=== PATIENT | male | born 1970 | race Caucasian/White ===

== ENCOUNTER → 2016-12-07 | Outpatient (CLI) | payer BC ==
[2016-12-07 13:53] LABS: CH 33.3; CHCM 34.2; HCT 57.8 % (39.0-53.0); HDW 2.59; MCH 32.2 pg (25.0-35.0); MCHC 32.9 g/dL (31.0-37.0); MCV 97.9 fL (80.0-100.0); Mean Platelet Volume 6.4; RDW 13.1 % (11.5-15.5); WBC 8.3 k/uL (3.8-10.6)
[2016-12-07 14:26] LABS: ALT 58 U/L (21-72); AST 32 U/L (17-59); Alkaline Phosphatase 70 U/L (38-126); Anion Gap 10 mmol/L; Blood Urea Nitrogen 15 mg/dL (9-20); Calcium 9.5 mg/dL (8.4-10.2); Carbon Dioxide 27 mmol/L (22-30); Chloride 105 mmol/L (98-107); Cholesterol 219 mg/dL (<200); Glucose 106 mg/dL (74-99); HDL Cholesterol 53 mg/dL (40-60); Non-African American GFR(MDRD) >60 (>60 ml/min/1.73 sqM); Potassium 4.4 mmol/L (3.5-5.1); Sodium 142 mmol/L (137-145); Total Bilirubin 0.7 mg/dL (0.2-1.3); Total Protein 7.5 g/dL (6.3-8.2); Triglycerides 209 mg/dL (<150)
== END ==
LOC: LABWHC1 12:44
PROVIDERS: ATTEND Nurse Practitioner Primary Care
DX: Z00.01 Encounter for general adult medical examination with abnormal findings (principal)
CPT/HCPCS: 36415; 80053; 80061; 82306; 84443; 85027

== ENCOUNTER → 2017-12-18 | Outpatient (CLI) | payer BC ==
[2017-12-18 08:05] LABS: ALT 44 U/L (21-72); AST 35 U/L (17-59); Albumin 4.1 g/dL (3.5-5.0); Alkaline Phosphatase 69 U/L (38-126); Anion Gap 12 mmol/L; Blood Urea Nitrogen 21 mg/dL (9-20); Calcium 9.1 mg/dL (8.4-10.2); Carbon Dioxide 28 mmol/L (22-30); Chloride 100 mmol/L (98-107); Glucose 149 mg/dL (74-99); Sodium 140 mmol/L (137-145); Total Bilirubin 0.6 mg/dL (0.2-1.3); Total Protein 7.5 g/dL (6.3-8.2)
[2017-12-18 08:12] LABS: Potassium 3.9 mmol/L (3.5-5.1)
--- NOTE | 2017-12-18 09:29 | MR ---
EXAMINATION TYPE: MR angio head wo con DATE OF EXAM: 12/18/2017 COMPARISON: NONE HISTORY: Dizziness and giddiness and/or vertigo per order. Headaches with nausea and vertigo per galina ent. TECHNIQUE: Time of flight images focusing on the [place] were performed without contrast.. 2-D and 3-D postprocessing imaging is performed on MRI scanner. FINDINGS: There is suspected dominant left vertebral artery or incomplete imaging of vertebral basila r junction due to low positioning. Visualized basilar artery shows satisfactory bifurcation into post erior cerebral arteries. There is patent right posterior communicating artery seen. There is hypoplas tic left posterior communicating artery. No significant stenosis or aneurysmal change is seen. Images of the anterior circulation show patent anterior communicating artery. No significant focal st enosis or aneurysmal change is seen. IMPRESSION: No aneurysmal change identified at the level of the [place]
--- NOTE | 2017-12-18 11:21 | MR ---
EXAMINATION TYPE: MR brain wo/w con DATE OF EXAM: 12/18/2017 COMPARISON: Same day MRA study that is isointense to adjacent draining venous sinuses HISTORY: Dizziness and giddiness and/or vertigo per order. Additional symptoms of headache and nausea per patient. TECHNIQUE: Multiplanar, multisequence images of the brain and brainstem is performed without and with IV contras t, utilizing 10 mL intravenous Gadavist . FINDINGS: Diffusion weighted images demonstrate no evidence of a recent infarct or other diffusion ab normality. There is no worrisome. The ventricular system and cisternal spaces are normal in size an d appearance. The brain volume is age appropriate. Midline structures demonstrate normal morphology. The craniocervical junction appears within normal limits. Post contrast images demonstrate focal area of abnormal nodular enhancement involving the la teral inferior aspect of the left cerebellar hemisphere that correspond to areas of subtle T2 hyperin tensity. Remainder brain parenchyma shows no suspicious enhancement. The dural venous sinuses appear patent. There is mild to moderate lobulated mucosal thickening in the left maxillary sinus. There is mild to moderate mucosal thickening in bilateral ethmoid sinuses. The globes are intact bilaterally. IMPRESSION: 1. Abnormal focal area of nodular enhancement inferior lateral left cerebellar hemisphere, etiology u ncertain. Favor congenital vascular etiology such as cavernous venous malformation as most likely uma ology. Consider CT correlation to assess for calcification and/or MRI with SWI imaging to assess for blooming to confirm.
== END ==
LOC: RADMRIMAIN 07:29
PROVIDERS: ATTEND Family Medicine
DX: R42 Dizziness and giddiness (principal); I10 Essential (primary) hypertension
CPT/HCPCS: 80053; 70544; 70553; 36415; A9581

== ENCOUNTER → 2018-01-02 | Outpatient (CLI) | payer BC ==
--- NOTE | 2018-01-02 09:18 | CT ---
EXAMINATION TYPE: CT brain wo/w con DATE OF EXAM: 01/02/2018 COMPARISON: MRI dated 12/18/2017 HISTORY: Dizziness, Headache and episodes of abnormal gait CT DLP: 2197.6 mGycm Automated Exposure Control for Dose Reduction was Utilized. TECHNIQUE: CT scan of the head is performed with IV contrast.,CT scan of the head is performed withou t and with with IV Contrast, patient injected with 100 mL of Isovue 300. FINDINGS: There is a focal area of hypoattenuation within the left cerebellar hemisphere correspond ing to the area of abnormal enhancement on the prior MRI dated 12/18/2017. No calcifications are seen within this region. On arterial phase postcontrast imaging there is no significant enhancement identi fied. This is in contrast to the likely venous enhancement on the exam of 12/18/2017. Additionally the re are no flow voids within the area on the prior MRI of 12/18/2017 also suggesting slow flow and veno us origin rather than arterial. Overall there are no areas of abnormal intracranial enhancement. Nonc ontrast images show no acute intracranial hemorrhage or midline shift. The ventricles and sulci are w ithin normal limits in size. No suspicious extra-axial fluid collection is seen. The globes are intac t. Moderate mucosal thickening is present throughout the ethmoid sinuses. IMPRESSION: 1. Redemonstration of a left cerebellar hemisphere lesion that in combination with the prior MRI find ings and CT finding suggests venous malformation. No calcifications are seen, however calcifications are present and only 30% of these lesions. 2. Moderate ethmoid paranasal sinus mucosal thickening.
== END | disposition home or self-care (01) ==
LOC: RADCTMAIN 08:13
PROVIDERS: ATTEND Nurse Practitioner Acute Care
DX: G93.89 Other specified disorders of brain (principal)
CPT/HCPCS: 70470; Q9967

== ENCOUNTER 2018-02-16 12:19 | Emergency (ER) | payer BC ==
[2018-02-16 12:49] VITALS: PULSE 67; RESP 18; TEMP 97.6
[2018-02-16] MEDS ORDERED: LOSARTAN 50 MG TAB PO STA (12:50)
[2018-02-16] MEDS ORDERED: BENZOCAINE SPRAY 1 CAN MUCOUS MEM STA (12:51)
[2018-02-16] MEDS ORDERED: IBUPROFEN 800 MG TAB PO STA (13:18)
[2018-02-16 14:14] VITALS: BP 177/90
--- NOTE | 2018-02-16 14:50 | ED ---
General Adult HPI - General Chief complaint: Dental/Oral Stated complaint: DENTAL PAIN Time Seen by Provider: 02/16/18 13:18 Source: patient Mode of arrival: ambulatory Limitations: no limitations - History of Present Illness Initial comments: 47-year-old male presents to the emergency department for a chief complaint of tooth pain. Patient states it has been somewhat painful for the past 2 weeks but started to increase last night. Patient states he just moved here so does not currently have a dentist. Patient states the pain is in the right upper jaw. Patient denies any radiation to the ear. Patient denies any neck pain or stiffness. Patient denies any fevers or chills at home. Patient states he has been trying to take Tylenol which has helped somewhat. Patient states the tooth broke about 4 months ago and this is where he thinks he has an infection.Patient has no other complaints at this time including shortness of breath, chest pain, abdominal pain, nausea or vomiting, headache, or visual changes. - Related Data Home Medications Medication Instructions Recorded Confirmed ALPRAZolam [Xanax] 0.5 mg PO BID PRN 10/02/15 02/16/18 Losartan Potassium 100 mg PO DAILY 10/02/15 02/16/18 Previous Rx's Medication Instructions Recorded Ibuprofen [Motrin] 600 mg PO Q6H PRN #20 tab 02/16/18 Penicillin V Potassium [Pen Vee K] 500 mg PO Q6H 10 Days tablet 02/16/18 Allergies Allergy/AdvReac Type Severity Reaction Status Date / Time No Known Allergies Allergy Verified 02/16/18 12:49 Review of Systems ROS Statement: Those systems with pertinent positive or pertinent negative responses have been documented in the HPI. ROS Other: All systems not noted in ROS Statement are negative. Past Medical History Past Medical History: Hypertension History of Any Multi-Drug Resistant Organisms: None Reported Additional Past Surgical History / Comment(s): lipoma removed posterior scalp Past Anesthesia/Blood Transfusion Reactions: No Reported Reaction Past Psychological History: Anxiety Smoking Status: Current every day smoker Past Alcohol Use History: Heavy Past Drug Use History: None Reported General Exam Limitations: no limitations General appearance: alert, in no apparent distress Head exam: Present: atraumatic Eye exam: Present: normal appearance. Absent: scleral icterus, conjunctival injection ENT exam: Present: mucous membranes moist, TM's normal bilaterally. Absent: normal exam, normal oropharynx (Patient has a fractured tooth 2. No evidence of abscess along the gumline. Patient does have poor dentition and dental caries.) Neck exam: Present: normal inspection, full ROM. Absent: tenderness, meningismus, lymphadenopathy Respiratory exam: Present: normal lung sounds bilaterally. Absent: respiratory distress, wheezes, rales, rhonchi, stridor Cardiovascular Exam: Present: regular rate, normal rhythm, normal heart sounds. Absent: systolic murmur, diastolic murmur, rubs, gallop, clicks Neurological exam: Present: alert, oriented X3, CN II-XII intact Psychiatric exam: Present: normal affect, normal mood Course Vital Signs 02/16/18 02/16/18 02/16/18 12:46 13:49 14:14 Temperature 97.6 F Pulse Rate 67 Respiratory 18 Rate Blood Pressure 201/115 200/108 177/90 O2 Sat by Pulse 96 Oximetry Medical Decision Making - Medical Decision Making 47-year-old male presents to the emergency department for a chief complaint of right upper tooth pain 2 weeks worsened in the past day. No fevers or chills at home. No neck stiffness or swelling. On exam patient does have a fractured tooth #2. No evidence of abscess along the gumline. No evidence of abscess with palpation along the gumline. Patient will be given penicillin. He was given a starter pack here and will be referred to a dentist. Patient's blood pressure was initially 201/115 in the emergency department. However patient did not take his medications today and is in pain. Patient was given his medications and blood pressure decreased to 177/90. Patient denies any symptoms of high blood pressure such as headache, shortness of breath, chest pain. Patient will continue to take his blood pressure medications at home and follow up with primary care for hypertension. Disposition Clinical Impression: Pain, dental Disposition: HOME SELF-CARE Condition: Good Instructions: Toothache (ED) Additional Instructions: Please take antibiotics as directed. Please take Motrin for pain. Please follow-up with dentist in 1-2 days. Please follow-up with dentist in 1-2 days for high blood pressure. Return to the emergency department if you have any worsening symptoms or fevers. [facility] dental plan [email or web address] marisabel Javed [phone] Prescriptions: Ibuprofen [Motrin] 600 mg PO Q6H PRN #20 tab PRN Reason: Pain Penicillin V Potassium [Pen Vee K] 500 mg PO Q6H 10 Days tablet Is patient prescribed a controlled substance at d/c from ED?: No Referrals: Sofia Norris MD [Primary Care Provider] - 1-2 days Time of Disposition: 14:48
[2018-02-16] MEDS ORDERED: PENICILLIN VK 500MG STARTER 4 TAB BTL PO STA (14:54)
== END 2018-02-16 15:03 | disposition home or self-care (01) ==
LOC: EC 12:19
DX: S02.5XXA Fracture of tooth (traumatic), initial encounter for closed fracture (principal); I10 Essential (primary) hypertension; F17.200 Nicotine dependence, unspecified, uncomplicated; Z86.018 Personal history of other benign neoplasm; Z79.899 Other long term (current) drug therapy; X58.XXXA Exposure to other specified factors, initial encounter
CPT/HCPCS: 99282

== ENCOUNTER 2023-06-21 13:56 | Emergency (ER) | payer SELFPAY ==
--- NOTE | 2023-06-21 14:25 | ED ---
General Adult HPI - General Source: patient, RN notes reviewed, old records reviewed Mode of arrival: ambulatory Limitations: no limitations <Will Kwong - Last Filed: 06/21/23 14:24> <Sarah Suarez - Last Filed: 06/22/23 18:27> - General Stated complaint: covid + high bp Time Seen by Provider: 06/21/23 14:24 - History of Present Illness Initial comments: 53-year-old male presents emergency Department from urgent care for evaluation o f hypertension. Patient states his blood pressure was 190/112. Patient states that his blood pressure is usually high he takes 2 medications for this. He states that he tested positive for COVID-19 urgent care. Patient did take his blood pressure medicine today. (Will Kwong) 53-year-old male with past medical history of hypertension who presents to the emergency department reporting a headache and high blood pressure. He states he has been sick since Saturday. He did test positive for Covid at the clinic today. They noted there that the patient's blood pressure was incredibly high. He states that he does have a history of high blood pressure and it does not even seem to be controlled on his pressure medications. Patient was not worried about his high blood pressure however he was instructed by the urgent care to be seen in the hospital. He states that he has had a headache, sinus congestion, sore throat. Denies taking any medications for his symptoms. Fevers have past. He denies any chest pain or shortness of breath. No other alleviating, preci pitator modifying factors (Sarah Suarez) - Related Data Home Medications Medication Instructions Recorded Confirmed Losartan Potassium 100 mg PO DAILY 10/02/15 06/21/23 Venlafaxine HCl [Effexor] 100 mg PO DAILY 06/21/23 06/21/23 hydroCHLOROthiazide 12.5 mg PO DAILY 06/21/23 06/21/23 Previous Rx's Medication Instructions Recorded amLODIPine [Norvasc] 5 mg PO DAILY #30 tab 06/21/23 Allergies Allergy/AdvReac Type Severity Reaction Status Date / Time No Known Allergies Allergy Verified 06/21/23 16:18 Review of Systems ROS Other: All systems not noted in ROS Statement are negative. <Will Kwong - Last Filed: 06/21/23 14:24> ROS Other: All systems not noted in ROS Statement are negative. <Sarah Suarez - Last Filed: 06/22/23 18:27> ROS Statement: Those systems with pertinent positive or pertinent negative responses have been documented in the HPI. Past Medical History Past Medical History: Hypertension History of Any Multi-Drug Resistant Organisms: None Reported Additional Past Surgical History / Comment(s): lipoma removed posterior scalp Past Anesthesia/Blood Transfusion Reactions: No Reported Reaction Past Psychological History: Anxiety Past Alcohol Use History: Heavy Past Drug Use History: None Reported <Will Kwong - Last Filed: 06/21/23 14:24> General Exam <Will Kwong - Last Filed: 06/21/23 14:24> General appearance: alert, in no apparent distress Head exam: Present: atraumatic, normocephalic, normal inspection Eye exam: Present: normal appearance, PERRL, EOMI. Absent: scleral icterus, co njunctival injection, periorbital swelling ENT exam: Present: normal exam, mucous membranes moist Neck exam: Present: normal inspection. Absent: tenderness, meningismus, lymphadenopathy Respiratory exam: Present: normal lung sounds bilaterally. Absent: respiratory distress, wheezes, rales, rhonchi, stridor Cardiovascular Exam: Present: regular rate, normal rhythm, normal heart sounds. Absent: systolic murmur, diastolic murmur, rubs, gallop, clicks GI/Abdominal exam: Present: soft, normal bowel sounds. Absent: distended, tenderness, guarding, rebound, rigid Extremities exam: Present: normal inspection, full ROM, normal capillary refill. Absent: tenderness, pedal edema, joint swelling, calf tenderness Back exam: Present: normal inspection Neurological exam: Present: alert, oriented X3, CN II-XII intact Psychiatric exam: Present: normal affect, normal mood Skin exam: Present: warm, dry, intact, normal color. Absent: rash <Sarah Suarez - Last Filed: 06/22/23 18:27> - General Exam Comments Initial Comments: Visual Physical Exam Vital signs reviewed General: Well-appearing, nontoxic, no acute distress. Head: Normocephalic, atraumatic Eyes: PERRLA, EOMI ENT: Airway patent Chest: Nonlabored breathing Skin: No visual rash, normal skin tone Neuro: Alert and oriented 3 Musculoskeletal: No gross abnormalities (Will Kwong) Course Vital Signs 06/21/23 06/21/23 06/21/23 14:26 14:50 15:30 Temperature 98.7 F Pulse Rate 91 85 78 Respiratory 20 20 20 Rate Blood Pressure 242/125 199/102 179/106 O2 Sat by Pulse 98 97 Oximetry 06/21/23 06/21/23 15:40 16:30 Temperature 98.1 F Pulse Rate 74 84 Respiratory 17 18 Rate Blood Pressure 171/110 158/95 O2 Sat by Pulse 96 98 Oximetry Medical Decision Making <Will Kwong - Last Filed: 06/21/23 14:24> - Lab Data Result diagrams: 06/21/23 14:37 06/21/23 14:37 <Sarah Suarez - Last Filed: 06/22/23 18:27> - Medical Decision Making I completed the quick note portion of this chart signed Will Kwong PA-C (Will Kwong) Was pt. sent in by a medical professional or institution (SHAD Castanon, EXPERIMENTAL PLASTICS FABRICATOR, urgent care, hospital, or correction...) When possible be specific @ -Urgent care Did you speak to anyone other than the patient for history (EMS, parent, family, police, friend...)? What history was obtained from this source @ -No Did you review nursing and triage notes (agree or disagree)? Why? @ -I reviewed and agree with nursing and triage notes Were old charts reviewed (outside hosp., previous admission, EMS record, old EKG, old radiological studies, urgent care reports/EKG's, correction records)? Report findings @ -No old charts were reviewed Differential Diagnosis (chest pain, altered mental status, abdominal pain women, abdominal pain men, vaginal bleeding, weakness, fever, dyspnea, syncope, headache, dizziness, GI bleed, back pain, seizure, CVA, palpatations, mental health, musculoskeletal)? @ -Covid, influenza, hypertensive urgency, subarachnoid EKG interpreted by me (3pts min.). @ -Yes and demonstrates sinus rhythm with frequent PVCs. Rate of 83. DE interval 182. QRS 91. QTC of 436. No acute ST segment elevations or depressions X-rays interpreted by me (1pt min.). @ -Yes and demonstrates no acute intrathoracic process CT interpreted by me (1pt min.). @ -None done U/S interpreted by me (1pt. min.). @ -None done What testing was considered but not performed or refused? (CT, X-rays, U/S, labs)? Why? @ -None What meds were considered but not given or refused? Why? @ -None Did you discuss the management of the patient with other professionals (professionals i.e. DrNoemi, PA, EXPERIMENTAL PLASTICS FABRICATOR, lab, RT, psych nurse, neonatal social worker, fighter pilot, teacher, inspectors and regulatory officers, case operator)? Give summary @ -No Was smoking cessation discussed for >3mins.? @ -No Was critical care preformed (if so, how long)? @ -No Were there social determinants of health that impacted care today? How? (Homelessness, low income, unemployed, alcoholism, drug addiction, transportation, low edu. Level, literacy, decrease access to med. care, halfway, rehab)? @ -No Was there de-escalation of care discussed even if they declined (Discuss DNR or withdrawal of care, Hospice)? DNR status @ -No What co-morbidities impacted this encounter? (DM, HTN, Smoking, COPD, CAD, Cancer, CVA, ARF, Chemo, Hep., AIDS, mental health diagnosis, sleep apnea, morbid obesity)? @ -Hypertension Was patient admitted / discharged? Hospital course, mention meds given and route, prescriptions, significant lab abnormalities, going to OR and other pertinent info. @ -Upon arrival patient was placed into trauma 1. Thorough history and physical exam was performed. IV access was established and laboratory studies were conducted. Chest x-ray was performed. I did give the patient some hyd ralazine for his high blood pressure. I did discuss the diagnosis, differential and treatment options. Patient states that he has uncontrolled high blood pressure all the time and therefore he is not concerned about it. I did discuss the long-term effects of uncontrolled high blood pressure and states that we should attempt to control it. I will place the patient on amlodipine. Instructed to continue taking his other blood pressure medications. By a blood pressure cuff. Keep a log. Follow up with his primary care doctor for further medication changes. Return for any new or worsening symptoms. Patient given the plan and was discharged in stable condition Undiagnosed new problem with uncertain prognosis? @ -No Drug Therapy requiring intensive monitoring for toxicity (Heparin, Nitro, Insulin, Cardizem)? @ -No Were any procedures done? @ -No Diagnosis/symptom? @ -Acute Covid infection, acute cephalgia, accelerated hypertension Acute, or Chronic, or Acute on Chronic? @ -Hypertension is acute on chronic Uncomplicated (without systemic symptoms) or Complicated (systemic symptoms)? @ -Complicated Side effects of treatment? @ -No Exacerbation, Progression, or Severe Exacerbation? @ -No Poses a threat to life or bodily function? How? (Chest pain, [place], [place], pneumonia, PE, COPD, DKA, ARF, appy, cholecystitis, CVA, Diverticulitis, Homicidal, Suicidal, threat to staff... and all critical care pts) @ -No (Sarah Suarez) - Lab Data Lab Results 06/21/23 06/21/23 06/21/23 Range/Units 14:37 14:37 14:37 WBC 6.5 (3.8-10.6) k/uL RBC 5.91 H (4.30-5.90) m/uL Hgb 18.6 H (13.0-17.5) gm/dL Hct 54.9 H (39.0-53.0) % MCV 93.0 (80.0-100.0) fL MCH 31.4 (25.0-35.0) pg MCHC 33.8 (31.0-37.0) g/dL RDW 12.8 (11.5-15.5) % Plt Count 254 (150-450) k/uL MPV 7.2 Neutrophils % 60 % Lymphocytes % 26 % Monocytes % 7 % Eosinophils % 4 % Basophils % 1 % Neutrophils # 3.9 (1.3-7.7) k/uL Lymphocytes # 1.7 (1.0-4.8) k/uL Monocytes # 0.4 (0-1.0) k/uL Eosinophils # 0.2 (0-0.7) k/uL Basophils # 0.1 (0-0.2) k/uL Sodium 138 (137-145) mmol/L Potassium 4.4 (3.5-5.1) mmol/L Chloride 105 (98-107) mmol/L Carbon Dioxide 23 (22-30) mmol/L Anion Gap 10 mmol/L BUN 14 (9-20) mg/dL Creatinine 1.05 (0.66-1.25) mg/dL Est GFR (CKD-EPI)AfAm >90 (>60 ml/min/1.73 sqM) Est GFR (CKD-EPI)NonAf 81 (>60 ml/min/1.73 sqM) Glucose 100 H (74-99) mg/dL Calcium 8.9 (8.4-10.2) mg/dL Total Bilirubin 0.6 (0.2-1.3) mg/dL AST 29 (17-59) U/L ALT 29 (4-49) U/L Alkaline Phosphatase 67 (38-126) U/L Troponin I <0.012 (0.000-0.034) ng/mL Total Protein 7.8 (6.3-8.2) g/dL Albumin 4.2 (3.5-5.0) g/dL Disposition <Will Kwong - Last Filed: 06/21/23 14:24> Is patient prescribed a controlled substance at d/c from ED?: No Time of Disposition: 16:54 <Sarah Suarez - Last Filed: 06/22/23 18:27> Clinical Impression: Hypertension, COVID-19 Disposition: HOME SELF-CARE Condition: Stable Instructions (If sedation given, give patient instructions): Hypertension (ED) Additional Instructions: Please start taking this medication in addition to your previous blood pressure medications. Check your blood pressure twice daily and keep a log. Follow up with your doctor for further medication adjustments Prescriptions: amLODIPine [Norvasc] 5 mg PO DAILY #30 tab Referrals: None,Stated [Primary Care Provider] - 1-2 days
[2023-06-21 14:47] LABS: Basophils # (A) 0.1 k/uL (0-0.2); Basophils % (A) 1 %; Eosinophils # (A) 0.2 k/uL (0-0.7); Eosinophils % (A) 4 %; HCT 54.9 % (39.0-53.0); HGB 18.6 gm/dL (13.0-17.5); Lymphocytes # (A) 1.7 k/uL (1.0-4.8); Lymphocytes % (A) 26 %; MCH 31.4 pg (25.0-35.0); MCHC 33.8 g/dL (31.0-37.0); Mean Platelet Volume 7.2; Monocytes # (A) 0.4 k/uL (0-1.0); Monocytes % (A) 7 %; Neutrophils # (A) 3.9 k/uL (1.3-7.7); Neutrophils % (A) 60 %; Platelet Count 254 k/uL (150-450); RBC 5.91 m/uL (4.30-5.90); RDW 12.8 % (11.5-15.5); WBC 6.5 k/uL (3.8-10.6)
[2023-06-21 15:00] LABS: ALT 29 U/L (4-49); AST 29 U/L (17-59); African American GFR (CKD) >90 (>60 ml/min/1.73 sqM); Albumin 4.2 g/dL (3.5-5.0); Alkaline Phosphatase 67 U/L (38-126); Anion Gap 10 mmol/L; Blood Urea Nitrogen 14 mg/dL (9-20); Calcium 8.9 mg/dL (8.4-10.2); Carbon Dioxide 23 mmol/L (22-30); Chloride 105 mmol/L (98-107); Glucose 100 mg/dL (74-99); Non-African American GFR(CKD) 81 (>60 ml/min/1.73 sqM); Potassium 4.4 mmol/L (3.5-5.1); Sodium 138 mmol/L (137-145); Total Bilirubin 0.6 mg/dL (0.2-1.3); Total Protein 7.8 g/dL (6.3-8.2)
[2023-06-21] MEDS ORDERED: hydrALAZINE HCL 20 MG/ML 1 ML VIAL IVP STA (15:15)
--- NOTE | 2023-06-21 15:47 | XR ---
EXAMINATION TYPE: XR chest 2V DATE OF EXAM: 06/21/2023 COMPARISON: 10/02/2015. HISTORY: Chest pain. Covid Positive. TECHNIQUE: Frontal and lateral views of the chest are obtained. FINDINGS: There is no focal air space opacity, pleural effusion, or pneumothorax seen. The cardiac silhouette size is within normal limits. The osseous structures are intact. IMPRESSION: No acute cardiopulmonary process.
[2023-06-21 16:38] VITALS: BP 158/95; PULSE 84; RESP 18; TEMP 98.1
== END 2023-06-21 17:01 | disposition home or self-care (01) ==
LOC: EC 13:56
DX: U07.1 COVID-19 (principal); I10 Essential (primary) hypertension; F41.9 Anxiety disorder, unspecified; Z79.899 Other long term (current) drug therapy
CPT/HCPCS: 36415; 93005; 80053; 84484; 85025; 71046; 99284; 96374; J0360

== ENCOUNTER 2023-10-17 13:27 | Inpatient (IN) | payer OTHER ==
[2023-10-17 13:50] LABS: Basophils # (A) 0.1 k/uL (0-0.2); Basophils % (A) 1 %; Eosinophils # (A) 0.3 k/uL (0-0.7); Eosinophils % (A) 3 %; HCT 54.4 % (39.0-53.0); Lymphocytes # (A) 2.3 k/uL (1.0-4.8); Lymphocytes % (A) 24 %; MCH 30.8 pg (25.0-35.0); MCV 93.4 fL (80.0-100.0); Mean Platelet Volume 7.4; Monocytes # (A) 0.7 k/uL (0-1.0); Monocytes % (A) 7 %; Neutrophils # (A) 6.1 k/uL (1.3-7.7); Neutrophils % (A) 63 %; Platelet Count 346 k/uL (150-450); RBC 5.82 m/uL (4.30-5.90); RDW 13.1 % (11.5-15.5); WBC 9.7 k/uL (3.8-10.6)
[2023-10-17] MEDS: HEPARIN SODIUM 1,000 UN/ML (10ML VL) IV ONE (13:50)
[2023-10-17] MEDS ORDERED: HEPARIN SODIUM 1,000 UN/ML (10ML VL) ONE (13:51)
[2023-10-17] MEDS ORDERED: fentaNYL (PF) 50 MCG/ML 2 ML AMP ONE (13:51)
[2023-10-17] MEDS ORDERED: VERAPAMIL 2.5 MG/ML 2 ML AMP ONE (13:52)
[2023-10-17] MEDS: SODIUM CHLORIDE 0.9% 1,000 ML IV STA (13:52)
[2023-10-17] MEDS ORDERED: LIDOCAINE 1% INJ 10MG/ML (20 ML MDV) ONE (13:52)
[2023-10-17] MEDS: ATORVASTATIN 80 MG TAB PO STA (13:56)
--- NOTE | 2023-10-17 14:02 | XR ---
EXAMINATION TYPE: XR chest 1V portable DATE OF EXAM: 10/17/2023 Comparison: 06/21/2023 Clinical History: 53-year-old male with chest pain Findings: Heart mildly enlarged. Mild interstitial density has slightly increased. No flaquito consolidation or pl eural effusion. Impression: Mild cardiomegaly and possible mild pulmonary vascular congestion. No pulmonary edema or focal infilt rate.
--- NOTE | 2023-10-17 14:09 | ED ---
General Adult HPI - General Chief complaint: Chest Pain Stated complaint: Chest pain Time Seen by Provider: 10/17/23 13:40 Source: patient, RN notes reviewed, old records reviewed Mode of arrival: EMS Limitations: no limitations - History of Present Illness Initial comments: Patient is a 53-year-old male with past medical history remarkable for tobacco use, marijuana use, heavy alcohol use, hypertension who presents emergency department sudden onset chest pain. States approximately 2 hours ago he was sitting outside eating, when he began feeling nauseous and began experiencing substernal chest pain. Was sweating profusely as well. No acute shortness of breath only secondary to the pain. States pain does not radiate but is located substernally. No back pain. No current nausea. No abdominal pain. No headaches. No recent falls or trauma. Is not on blood thinners. States he is compliant with his antihypertensive medications and states he is on losartan and hydrochlorothiazide. Was given aspirin by EMS. Unknown if EKG was obtained by EMS. Patient was initially taken to triage where EKG was performed and I was made aware the patient at approximately 1340 which is when STEMI pager was activated. - Related Data Home Medications Medication Instructions Recorded Confirmed Losartan Potassium 100 mg PO DAILY 10/02/15 10/17/23 Venlafaxine HCl [Effexor] 100 mg PO DAILY 06/21/23 10/17/23 hydroCHLOROthiazide 12.5 mg PO DAILY 06/21/23 10/17/23 Allergies Allergy/AdvReac Type Severity Reaction Status Date / Time No Known Allergies Allergy Verified 10/17/23 13:50 Review of Systems ROS Statement: Those systems with pertinent positive or pertinent negative responses have been documented in the HPI. Review of Systems: CONST: Denies fever EYES: Denies blurry vision ENT: Denies nasal congestion C/V: Endorses chest pain RESP: Denies shortness of breath GI: Denies abdominal pain : Denies dysuria SKIN: Denies rash. MSK: Denies joint pain. NEURO: Denies headache ROS Other: All systems not noted in ROS Statement are negative. Past Medical History Past Medical History: Hypertension History of Any Multi-Drug Resistant Organisms: None Reported Additional Past Surgical History / Comment(s): lipoma removed posterior scalp Past Anesthesia/Blood Transfusion Reactions: No Reported Reaction Past Psychological History: Anxiety Past Alcohol Use History: Heavy Past Drug Use History: None Reported General Exam - General Exam Comments Initial Comments: General: Appears in severe distress secondary to substernal chest pain. HEAD: Normal with no signs of head trauma. EYES: PERRLA, EOMI, conjunctiva normal, no discharge. Pulls 3 mm and equal bilaterally. ENT: Hearing grossly intact, normal oropharynx. RESPIRATORY: Clear breath sounds bilaterally. No wheezes, rales, or rhonchi. C/V: Regular rate and rhythm. S1 and S2 auscultated, no edema, peripheral pulses 2+ and intact throughout, symmetrical. ABD: Abd is soft, nontender, nondistended EXT: Normal range of motion, no obvious deformity SKIN: No rashes or lesions observed on exposed skin. NEURO: Alert and oriented x 4. No focal deficits. Limitations: no limitations Course Vital Signs 10/17/23 10/17/23 13:29 13:50 Temperature 97.3 F L Pulse Rate 74 82 Respiratory 20 18 Rate Blood Pressure 94/61 135/75 O2 Sat by Pulse 97 98 Oximetry Medical Decision Making - Medical Decision Making Was pt. sent in by a medical professional or institution (, PA, CUSTOMER PRICING MANAGER, urgent care, hospital, or prison...) When possible be specific @ -No Did you speak to anyone other than the patient for history (EMS, parent, family, police, friend...)? What history was obtained from this source @ -No Did you review nursing and triage notes (agree or disagree)? Why? @ -I reviewed and agree with nursing and triage notes Were old charts reviewed (outside hosp., previous admission, EMS record, old EKG, old radiological studies, urgent care reports/EKG's, prison records)? Report findings @ -Old charts reviewed Differential Diagnosis (chest pain, altered mental status, abdominal pain women, abdominal pain men, vaginal bleeding, weakness, fever, dyspnea, syncope, headache, dizziness, GI bleed, back pain, seizure, CVA, palpatations, mental health, musculoskeletal)? @ -Differential Chest Pain: Stable Angina, Unstable Angina, STEMI, NSTEMI Aortic Dissection, Pneumothorax, Musculoskeletal, Esophageal Spasm GERD, Cholecystitis, Pancreatitis, Zoster, this is not meant to be an all-inclusive list. EKG interpreted by me (3pts min.). @ -As above X-rays interpreted by me (1pt min.). @ -Chest x-ray shows cardiomegaly but no acute cardiopulmonary process. Notes no significant mediastinal widening or enlargement. Similar to prior x-rays. CT interpreted by me (1pt min.). @ -None done U/S interpreted by me (1pt. min.). @ -None done What testing was considered but not performed or refused? (CT, X-rays, U/S, labs)? Why? @ -None What meds were considered but not given or refused? Why? @ -Consider given aspirin however patient already received 324 mg of aspirin from EMS. Did you discuss the management of the patient with other professionals (professionals i.e. Dr., PA, CUSTOMER PRICING MANAGER, lab, RT, psych nurse, psychotherapist social worker, binding cementer french cord, teacher, security officer supervisor, director case management)? Give summary @ -I discussed with midlevel provider Nolvia from cardiology services who came down to evaluate the patient and was in contact with Dr. Cleveland who will meet the patient in catheterization lab 4. They were in agreement with the plan. I spoke with Dr. Sagastume of [facility] who accepted the patient onto his service. Was smoking cessation discussed for >3mins.? @ -No Was critical care preformed (if so, how long)? @ -Yes, 20 minutes. Were there social determinants of health that impacted care today? How? (Homelessness, low income, unemployed, alcoholism, drug addiction, transportation, low edu. Level, literacy, decrease access to med. care, retirement, rehab)? @ -No Was there de-escalation of care discussed even if they declined (Discuss DNR or withdrawal of care, Hospice)? DNR status @ -No What co-morbidities impacted this encounter? (DM, HTN, Smoking, COPD, CAD, Cancer, CVA, ARF, Chemo, Hep., AIDS, mental health diagnosis, sleep apnea, morbid obesity)? @ -Hypertension, alcohol abuse, smoking history. Was patient admitted / discharged? Hospital course, mention meds given and route, prescriptions, significant lab abnormalities, going to OR and other pert inent info. @ -Based on the patient's presentation and physical exam, patient presents to the emergency department complaining of chest pain. Apparently patient had a normal EKG on the way to the hospital. Chest pain started approximately an hour and a half prior to arrival. Patient was taken to triage where EKG was performed and it revealed a STEMI. STEMI pager was activated at approximately 1340. Patient was immediately taken to trauma bay 1. Placed on the monitor and portable monitor with pads. IV access initiated and patient was given 1 L fluid bolus. Patient is already received aspirin from EMS. Patient was bolused heparin as well as given a dose of Lipitor. Patient's blood pressure was initially soft upon presentation but did improve to 130 systolic. Cardiac labs were obtained. Chest x-ray shows no obvious acute cardiopulmonary process. Nolvia of cardiology presented bedside to evaluate the patient and EKG. Dr. Lindquist was in contact with her and patient will be taken to the [facility] 4 for intervention. Patient was in agreement this plan. He was notified over the concern for heart attack. Patient was placed on nasal cannula oxygen and transferred to the [facility] in serious condition. Vital signs were within acceptable limits at this time. I spoke with Dr. Sagastume, [facility] who accepted the admission. Undiagnosed new problem with uncertain prognosis? @ -No Drug Therapy requiring intensive monitoring for toxicity (Heparin, Nitro, Insulin, Cardizem)? @ -Heparin Were any procedures done? @ -No Diagnosis/symptom? @ -STEMI Acute, or Chronic, or Acute on Chronic? @ -Acute Uncomplicated (without systemic symptoms) or Complicated (systemic symptoms)? @ -Complicated Side effects of treatment? @ -No Exacerbation, Progression, or Severe Exacerbation? @ -No Poses a threat to life or bodily function? How? (Chest pain, [place], [place], pneumonia, PE, COPD, DKA, ARF, appy, cholecystitis, CVA, Diverticulitis, Homicidal, Suicidal, threat to staff... and all critical care pts) @ -Yes - Lab Data Result diagrams: 10/17/23 13:39 Lab Results 10/17/23 10/17/23 Range/Units 13:39 13:39 WBC 9.7 (3.8-10.6) k/uL RBC 5.82 (4.30-5.90) m/uL Hgb 18.0 H (13.0-17.5) gm/dL Hct 54.4 H (39.0-53.0) % MCV 93.4 (80.0-100.0) fL MCH 30.8 (25.0-35.0) pg MCHC 33.0 (31.0-37.0) g/dL RDW 13.1 (11.5-15.5) % Plt Count 346 (150-450) k/uL MPV 7.4 Neutrophils % 63 % Lymphocytes % 24 % Monocytes % 7 % Eosinophils % 3 % Basophils % 1 % Neutrophils # 6.1 (1.3-7.7) k/uL Lymphocytes # 2.3 (1.0-4.8) k/uL Monocytes # 0.7 (0-1.0) k/uL Eosinophils # 0.3 (0-0.7) k/uL Basophils # 0.1 (0-0.2) k/uL PT 10.8 (10.0-12.5) sec INR 1.0 (<1.2) APTT 23.5 (22.0-30.0) sec - EKG Data -: EKG Interpreted by Me EKG Comments: 12-lead Electrocardiogram Interpretation Note EKG was reviewed and interpreted by myself. 12-lead ECG performed at 1336 is interpreted by me as revealing [normal sinus rhythm] at a rate of 72 beats per minute. [place] is normal. [place] interval is 170 ms, QRS duration is 106 ms, QTc is 480 ms.. There is diffuse ST segment elevations in the inferior leads, as well as all of the precordial leads with reciprocal depressions in aVR and aVL.. [R wave progression across the precordium was satisfactory]. By my interpretation, this EKG is concerning for a STEMI.. Critical Care Time Critical Care Time: Yes Total Critical Care Time: 20 Disposition Clinical Impression: STEMI (ST elevation myocardial infarction) Disposition: ADMITTED IP TO [facility] Condition: Serious Time of Disposition: 14:05
[2023-10-17] MEDS ORDERED: NALOXONE 0.4 MG/ML 1 ML VIAL IV PRN (14:11)
[2023-10-17] MEDS: LIDOCAINE 1% INJ 10MG/ML (20 ML MDV) SQ ONE (14:14)
[2023-10-17] MEDS: MIDAZOLAM 2 MG/2 ML VIAL IVP ONE ×2 (14:14→14:29)
[2023-10-17] MEDS: fentaNYL (PF) 50 MCG/ML 2 ML AMP IVP ONE (14:14)
[2023-10-17] MEDS: SODIUM CHLORIDE 0.9% 1,000 ML IV ONE (14:15)
[2023-10-17] MEDS ORDERED: TICAGRELOR 90 MG TAB ONE (14:19)
[2023-10-17 14:20] LABS: Partial Thromboplastin Time 23.5 sec (22.0-30.0); Prothrombin Time 10.8 sec (10.0-12.5)
[2023-10-17] MEDS: HEPARIN SODIUM 1,000 UN/ML (10ML VL) IVP ONE (14:21)
[2023-10-17] MEDS: TICAGRELOR 90 MG TAB PO ONE (14:22)
--- NOTE | 2023-10-17 14:27 | P.CRDCN ---
History of Present Illness History of present illness: HISTORY OF PRESENT ILLNESS: This is a 53-year-old male with a past medical history significant for hypertension, nicotine dependence, daily alcohol use, and marijuana use. Patient does not follow with a product design engineer. We have been asked to see the patient in consultation for STEMI. Patient examined at the bedside in the ER. Patient states that he went to lunch and afterwards began to consume alcohol and smoke marijuana. He states shortly afterwards he began to have chest pain in the middle of his chest. He states that feels like a pressure type sensation in the middle of his chest. He denied any radiation of the pain. He does report feeling nauseated at that time although denies nausea currently. He continues to report chest discomfort at the time of examination. He denies any previous history of coronary artery disease. He does report that he is a daily drinker. He also reports he is a current cigarette smoker and uses marijuana. He endorses a family history of premature coronary artery disease and states his dad had a heart attack in his 40s. DIAGNOSTICS: - EKG reveals sinus mechanism with diffuse ST elevation inferiorly and in precordial leads. Reciprocal T wave inversions in aVR and aVL. - Chest xray mild cardiomegaly and possible mild pulmonary vascular congestion. No pulmonary edema or focal infiltrate. - Laboratory data: WBC 9.7. Hemoglobin 18.0. Platelet count 246. - Current home cardiac medications include losartan 100 mg daily and hydroch lorothiazide 12.5 mg daily. - Most recent echocardiogram obtained in 2016 revealed ejection fraction 55 to 60%, mild MR, mild TR - Patient underwent stress echocardiogram in 2016 which was negative for ischemia REVIEW OF SYSTEMS: At the time of my exam: CONSTITUTIONAL: Denies fever or chills. HEENT: Denies blurred vision, vision changes, or eye pain. Denies hemoptysis CARDIOVASCULAR: Reports chest pain. Denies orthopnea. Denies PND. Denies palpitations RESPIRATORY: Denies shortness of breath. GASTROINTESTINAL: Denies abdominal pain. Denies nausea or vomiting. HEMATOLOGIC: Denies bleeding disorders. GENITOURINARY: Denies any blood in urine. SKIN: Denies pruitis. Denies rash. PHYSICAL EXAM: VITAL SIGNS: Reviewed. GENERAL: Well-developed in no mild distress. HEENT: Head is normocephalic. Pupils are equal, round. Sclerae anicteric. Mucous membranes of the mouth are moist. Neck supple. No JVD or thyromegaly LUNGS: Respirations even and unlabored. Lungs essentially clear to auscultation bilaterally. HEART: Regular rate and rhythm. S1 and S2 heard. ABDOMEN: Soft. Nondistended. Nontender. EXTREMITIES: Normal range of motion. No clubbing or cyanosis. Peripheral pulses intact. No lower extremity edema NEUROLOGIC: Awake and alert. Oriented x 3. ASSESSMENT: STEMI Hypertension Daily alcohol use Nicotine dependence Marijuana use Family history of premature coronary artery disease NYHA Class 1 PLAN: Patient presenting with chest pain to the ER. EKG with diffuse ST elevation. Recommend emergent cardiac cath. Patient is agreeable. Patient taken to the laborer cook house in stable condition. He did receive aspirin via EMS and lipitor and heparin in ER. Obtain 2D echo post procedure Abstinence from alcohol and marijuana recommended Smoking cessation encourage. Will add Nicotine patch. Patient to be referred to [place] quitline upon discharge Further recommendations pending patient course Nurse practitioner note has been reviewed by physician. Signing provider agrees with the documented findings, assessment, and plan of care documented by WAFER FABRICATION OPERATOR as a scribe. Past Medical History Past Medical History: Hypertension History of Any Multi-Drug Resistant Organisms: None Reported Additional Past Surgical History / Comment(s): lipoma removed posterior scalp Past Anesthesia/Blood Transfusion Reactions: No Reported Reaction Past Psychological History: Anxiety Past Alcohol Use History: Heavy Past Drug Use History: None Reported Medications and Allergies Home Medications Medication Instructions Recorded Confirmed Type Losartan Potassium 100 mg PO DAILY 10/02/15 10/17/23 History Venlafaxine HCl [Effexor] 100 mg PO DAILY 06/21/23 10/17/23 History hydroCHLOROthiazide 12.5 mg PO DAILY 06/21/23 10/17/23 History Allergies Allergy/AdvReac Type Severity Reaction Status Date / Time No Known Allergies Allergy Verified 10/17/23 13:50 Physical Exam Vitals: Vital Signs Temp Pulse Resp BP Pulse Ox 10/17/23 13:50 82 18 135/75 98 10/17/23 13:29 97.3 F L 74 20 94/61 97 Intake and Output 10/16/23 10/17/23 10/17/23 22:59 06:59 14:59 Other: Weight 107.955 kg Results 10/17/23 13:39 Coagulation 10/17/23 Range/Units 13:39 PT 10.8 (10.0-12.5) sec APTT 23.5 (22.0-30.0) sec CBC 10/17/23 Range/Units 13:39 WBC 9.7 (3.8-10.6) k/uL RBC 5.82 (4.30-5.90) m/uL Hgb 18.0 H (13.0-17.5) gm/dL Hct 54.4 H (39.0-53.0) % Plt Count 346 (150-450) k/uL Intake and Output 10/16/23 10/17/23 10/17/23 22:59 06:59 14:59 Other: Weight 107.955 kg Patient Weight 10/18/23 06:59 Weight 107.955 kg 10/17/23 13:39
[2023-10-17] MEDS: IOPAMIDOL-370 100ML BTL IVP ONE (14:37)
[2023-10-17] MEDS: NITROGLYCERIN 1000MCG/10ML SYRINGE INTRACORON ONE (14:45)
[2023-10-17] MEDS: PHENYLEPHRINE-0.9% NACL SYG 1,000 MCG/10 ML SYRINGE IVP ONE (14:47)
[2023-10-17] MEDS: IOPAMIDOL-370 100ML BTL INJ ONE (14:59)
[2023-10-17] MEDS: TIROFIBAN 12.5MG-250ML NS 250 ML IV ONE (15:00)
[2023-10-17] MEDS ORDERED: RX INFO: IV CONTRAST WAS GIVEN 1 EACH MISC MISCELLANE PRN (15:03)
[2023-10-17] MEDS ORDERED: MAG HYDROX/AL HYDROX/SIMETH 30 ML CUP PO PRN (15:03)
[2023-10-17] MEDS ORDERED: ATROPINE SULFATE 0.1 MG/ML 10ML SYRINGE IV PRN (15:03)
[2023-10-17] MEDS ORDERED: NITROGLYCERIN SL TABS 0.4 MG TAB SUBLINGUAL PRN (15:03)
[2023-10-17] MEDS ORDERED: ZOLPIDEM 5 MG TAB PO PRN (15:03)
--- NOTE | 2023-10-17 15:09 | P.PCN ---
Date of Procedure: 10/17/23 Operative Findings: CARDIAC CATHETERIZATION AND PERCUTANEOUS CORONARY INTERVENTION PERFORMING PHYSICIAN: Javier Lindquist MD, VI PROCEDURE PERFORMED: 1. Selective right and left coronary angiogram 2. Left heart catheterization 3. Successful stenting of the mid LAD using 4.0 x 15 and 4.0 x 23 mm Xience JENNY with an excellent angiographic results 4. Adjunctive use of intravascular imaging 5. Ultrasound-guided access of the right radial art INDICATION: Acute anterior ST elevation myocardial infarction COMPLICATION: None APPROACH: Right radial art LEVEL OF SEDATION: Moderate with the sedation time off 48 minutes PROCEDURE DESCRIPTION: After obtaining informed consent the patient was brought to the cardiac Burglar Alarm Inspector. The right radial artery was cannulated using micropuncture technique under ultrasound guidance the micropuncture wire passed easily then I placed a 6 [place] sheath. I did selective right coronary angiogram using JR4 catheter and selective left coronary angiogram using JL 3.5 guiding catheter. After that I did intervene on the LAD. After realizing that the LAD has a lesion in the midportion appears to be in the range of 80 to 90% just distal to the bifurcation of a large diagonal branch I did wired the LAD using a run-through wire. Balloon angioplasty was performed using 3 mm balloon. After that I did intravascular ultrasound which showed a diameter around 4 mm with a soft plaque. I deployed initially 4.0 x 15 mm stent which was postdilated using 4 mm noncompliant balloon but the following angiogram showed an area with a tubular lesion distal to the stent appeared to be concerning and hazy with possible thrombus. I deployed another stent and that was 4.0 x 23 mm stent which was also postdilated using 4 mm noncompliant balloon. Final angiogram showed excellent angiographic results with JEMIMA-3 flow. There was thrombus involving the ostial of the large diagonal branch which I decided at that point to treat the patient medically using Aggrastat for 12 hours. Dual antiplatelet will be continued. High intensity statin will be given as well. The procedure was completed with no complication SELECTIVE CORONARY ANGIOGRAM: The right coronary artery: Large-caliber vessel and a dominant vessel with mild to moderate diffuse disease with no high-grade stenosis Left main: Is angiographically normal The left circumflex: Large-caliber vessel and codominant vessel with mild to moderate disease only with no high-grade stenosis The left anterior descending artery: Has a critical lesion in the midportion with a plaque rupture and thrombus formation just distal to the bifurcation of a large diagonal branch HEMODYNAMICS: LVEDP was 18 mmHg with no significant gradient across aortic valve CONCLUSION: Plaque rupture and thrombus formation involving the mid LAD. I did perform successful stenting of the LAD as described above Mildly elevated left-sided filling pressure POSTPROCEDURE MANAGEMENT: 1. Dual antiplatelet therapy using aspirin and Brilinta for 12 month 2. Aggressive cholesterol control 3. Follow-up with the patient
[2023-10-17 15:30] LABS: Glucose,Whole Blood 145 mg/dL (70-110)
[2023-10-17] MEDS: TIROFIBAN 12.5MG-250ML NS 250 ML IV SCH (15:30)
[2023-10-17] MEDS: SODIUM CHLORIDE 0.9% 1,000 ML in EMPTY BAG 1 BAG IV SCH (15:30)
[2023-10-17 18:40] LABS: ALT 43 U/L (4-49); AST 44 U/L (17-59); African American GFR (CKD) 84 (>60 ml/min/1.73 sqM); Alcohol 10 mg/dL; Alkaline Phosphatase 69 U/L (38-126); Amylase 46 U/L (30-110); Anion Gap 12 mmol/L; Blood Urea Nitrogen 19 mg/dL (9-20); Calcium 9.2 mg/dL (8.4-10.2); Carbon Dioxide 20 mmol/L (22-30); Chloride 104 mmol/L (98-107); Glucose 139 mg/dL (74-99); Lipase 169 U/L (23-300); Magnesium 2.2 mg/dL (1.6-2.3); Non-African American GFR(CKD) 73 (>60 ml/min/1.73 sqM); Potassium 4.1 mmol/L (3.5-5.1); Sodium 136 mmol/L (137-145); Total Bilirubin 0.5 mg/dL (0.2-1.3); Total Protein 7.2 g/dL (6.3-8.2)
[2023-10-17] MEDS ORDERED: LORazepam 2 MG/ML INJ IV PRN ×3 (19:37)
[2023-10-17] MEDS ORDERED: LORazepam 1 MG TAB PO PRN (19:37)
[2023-10-17] MEDS ORDERED: LORazepam 0.5 MG TAB PO PRN (19:37)
[2023-10-17] MEDS ORDERED: MELATONIN 5 MG TABLET PO PRN (19:38)
[2023-10-17] MEDS: ATORVASTATIN 80 MG TAB PO SCH (20:09)
[2023-10-17] MEDS: TICAGRELOR 90 MG TAB PO SCH (20:10)
[2023-10-17] MEDS: METOPROLOL TARTRATE 25 MG TAB PO SCH (20:10)
[2023-10-17] MEDS: THIAMINE 100 MG/ML 2 ML VIAL IM STA (20:13)
[2023-10-17] MEDS ORDERED: ATORVASTATIN 80 MG TAB PO SCH (21:00)
[2023-10-17] MEDS: METOPROLOL TARTRATE 25 MG TAB PO STA (22:19)
[2023-10-17] MEDS: lisinopriL 10 MG TAB PO STA (22:20)
--- NOTE | 2023-10-18 02:45 | HP ---
HISTORY AND PHYSICAL Coreg for beta blockers. Prognosis guarded. Cardiology seen him. He is in ICU. He appears stable. MMODL / IJN: [id number] /
[2023-10-18 06:24] LABS: Basophils # (A) 0.1 k/uL (0-0.2); Basophils % (A) 1 %; Eosinophils # (A) 0.2 k/uL (0-0.7); Eosinophils % (A) 2 %; HCT 54.4 % (39.0-53.0); HGB 17.4 gm/dL (13.0-17.5); Lymphocytes # (A) 1.8 k/uL (1.0-4.8); Lymphocytes % (A) 15 %; MCH 30.6 pg (25.0-35.0); MCHC 31.9 g/dL (31.0-37.0); MCV 95.9 fL (80.0-100.0); Monocytes # (A) 0.7 k/uL (0-1.0); Monocytes % (A) 6 %; Neutrophils # (A) 8.9 k/uL (1.3-7.7); Neutrophils % (A) 75 %; Platelet Count 273 k/uL (150-450); RBC 5.67 m/uL (4.30-5.90); RDW 13.2 % (11.5-15.5); WBC 11.9 k/uL (3.8-10.6)
[2023-10-18 06:55] LABS: ALT 38 U/L (4-49); AST 71 U/L (17-59); African American GFR (CKD) >90 (>60 ml/min/1.73 sqM); Albumin 3.6 g/dL (3.5-5.0); Alkaline Phosphatase 63 U/L (38-126); Anion Gap 9 mmol/L; Blood Urea Nitrogen 22 mg/dL (9-20); Calcium 8.8 mg/dL (8.4-10.2); Carbon Dioxide 22 mmol/L (22-30); Chloride 106 mmol/L (98-107); Glucose 160 mg/dL (74-99); Non-African American GFR(CKD) 84 (>60 ml/min/1.73 sqM); Sodium 137 mmol/L (137-145); Total Bilirubin 0.8 mg/dL (0.2-1.3); Total Protein 6.7 g/dL (6.3-8.2)
--- NOTE | 2023-10-18 07:18 | P.PN ---
Subjective Progress Note Date: 10/18/23 Principal diagnosis: Acute coronary syndrome The patient is a 53-year-old gentleman with history of smoking and alcohol was admitted with acute anterior ST deviation myocardial infarction and underwent an emergent heart catheterization and stenting of the LAD. The echo still pending. October 18, 2023 The patient was seen and evaluated this morning. He is asymptomatic. He is hemodynamically stable. He is maintaining normal sinus mechanism. The echo still pending. He is on dual antiplatelet therapy along with high intensity statin. Will consider placing nicotine patches. Follow-up on the echocardiogram. The examination overall appears to be unremarkable with stable vital signs and clear breathing sounds bilaterally and regular rate and rhythm and no edema was noted and the right radial site is soft and nontender with no bruises Assessment Acute anterior ST ovation myocardial infarction History of alcohol use History of smoking Plan Continue the current medical regimen Follow-up on the echocardiogram Watch for any symptoms of alcohol withdrawal Consider nicotine patch Objective - Vital Signs Vital signs: Vital Signs Temp 98.0 F 10/18/23 04:00 Pulse 58 L 10/18/23 06:00 Resp 15 10/18/23 06:00 BP 116/58 10/18/23 06:00 Pulse Ox 95 10/18/23 06:00 FiO2 Intake & Output 10/17/23 10/18/23 10/18/23 18:59 06:59 18:59 Intake Total 754 800 Output Total 200 800 Balance 554 0 Weight 107.955 kg 107.8 kg Intake: IV 754 220 Sodium Chloride 0.9% 1, 300 220 000 ml In Empty Bag 1 bag @ 75 mls/hr IV .[id number] [facility] Rx#:[id number] Oral 380 Tube Feeding 200 Output: Urine 200 800 Other: Voiding Method Urinal Urinal # Voids 1 - Labs CBC & Chem 7: 10/18/23 05:51 10/18/23 05:51 Labs: Abnormal Lab Results - Last 24 Hours (Table) 10/17/23 10/17/23 10/17/23 Range/Units 13:39 15:29 17:33 WBC (3.8-10.6) k/uL Hgb 18.0 H (13.0-17.5) gm/dL Hct 54.4 H (39.0-53.0) % Neutrophils # (1.3-7.7) k/uL Sodium (137-145) mmol/L Carbon Dioxide (22-30) mmol/L BUN (9-20) mg/dL Glucose (74-99) mg/dL POC Glucose (mg/dL) 145 H (70-110) mg/dL AST (17-59) U/L Troponin I 2.050 H* (0.000-0.034) ng/mL 10/17/23 10/18/23 10/18/23 Range/Units 17:33 05:51 05:51 WBC 11.9 H (3.8-10.6) k/uL Hgb (13.0-17.5) gm/dL Hct 54.4 H (39.0-53.0) % Neutrophils # 8.9 H (1.3-7.7) k/uL Sodium 136 L (137-145) mmol/L Carbon Dioxide 20 L (22-30) mmol/L BUN 22 H (9-20) mg/dL Glucose 139 H 160 H (74-99) mg/dL POC Glucose (mg/dL) (70-110) mg/dL AST 71 H (17-59) U/L Troponin I (0.000-0.034) ng/mL
[2023-10-18] MEDS: LOSARTAN 50 MG TAB PO SCH (08:19)
[2023-10-18] MEDS: METOPROLOL TARTRATE 50 MG TAB PO SCH (08:19)
[2023-10-18] MEDS: ASPIRIN 81 MG PO SCH (08:19)
[2023-10-18] MEDS: VENLAFAXINE HCL 50 MG TAB PO SCH (08:20)
[2023-10-18] MEDS: NICOTINE 14MG/24HR PATCH TRANSDERM SCH (08:20)
[2023-10-18] MEDS: THIAMINE 100 MG TAB PO SCH (08:20)
[2023-10-18] MEDS: hydroCHLOROthiazide 12.5 MG CAP PO SCH (08:20)
[2023-10-18] MEDS ORDERED: ASPIRIN 81 MG PO SCH (09:00)
[2023-10-18] MEDS ORDERED: NICOTINE 21MG/24HR PATCH TRANSDERM SCH (09:00)
[2023-10-18 12:12] VITALS: BMI 33.1
--- NOTE | 2023-10-18 14:37 | P.PN ---
Subjective Progress Note Date: 10/18/23 * 53-year-old male with a past medical history significant for hypertension, nicotine dependence, daily alcohol use, and marijuana use. * Patient states that he went to lunch and afterwards began to consume alcohol and smoke marijuana. He states shortly afterwards he began to have chest pain in the middle of his chest. He states that feels like a pressure type sensation in the middle of his chest. He also reports he is a current cigarette smoker and uses marijuana. He endorses a family history of premature coronary artery disease and states his dad had a heart attack in his 40s. EKG reveals sinus mechanism with diffuse ST elevation inferiorly and in precordial leads. Reciprocal T wave inversions in aVR and aVL. Chest xray mild cardiomegaly and possible mild pulmonary vascular congestion. No pulmonary edema or focal infiltrate. * Patient was noted to have ST elevated [place] and was taken to cardiac Button Clamper for further evaluation * Patient was noted to have Plaque rupture and thrombus formation involving the mid LAD. Mildly elevated left-sided filling pressure. S/p PCI * 10/18/23 : Patient seen and evaluated at bedside patient transferred out of medical ICU. Postprocedure CBC reviewed WBC 11.9 likely reactive. Electrolyte panel reviewed sodium 137 potassium 4 BUN 22 creatinine 1.02. Echocardiogram pending patient with monitored for alcohol withdrawl No chest pain REVIEW OF SYSTEMS: Pain on admission resolved CONSTITUTIONAL: No fever, no malaise, no fatigue. HEENT: No recent visual problems or hearing problems. Denied any sore throat. CARDIOVASCULAR: Pain on admission resolved PULMONARY: No shortness of breath, no cough, no hemoptysis. GASTROINTESTINAL: No diarrhea, no nausea, no vomiting, no abdominal pain. NEUROLOGICAL: No headaches, no weakness, no numbness. HEMATOLOGICAL: Denies any bleeding or petechiae. GENITOURINARY: Denies any burning micturition, frequency, or urgency. MUSCULOSKELETAL/RHEUMATOLOGICAL: Denies any joint pain, swelling, or any muscle pain. ENDOCRINE: Denies any polyuria or polydipsia. PHYSICAL EXAMINATION: GENERAL: The patient is alert and oriented x3, not in any acute distress. Well developed, well nourished. HEENT: Pupils are round and equally reacting to light. EOMI. CARDIOVASCULAR: S1 and S2 present. No murmurs, rubs, or gallops. PULMONARY: Chest is clear to auscultation, no wheezing or crackles. ABDOMEN: Soft, nontender, nondistended, normoactive bowel sounds. No palpable organomegaly. MUSCULOSKELETAL: No joint swelling or deformity. EXTREMITIES: No cyanosis, clubbing, or pedal edema. NEUROLOGICAL: Gross neurological examination did not reveal any focal deficits. SKIN: No rashes. Assessment and plan * ST elevated [place], s/p stenting of LAD * Alcohol use disorder with impending withdrawal * Leukocytosis reactive * In regards to coronary artery disease, s/p PCI continue medical management. Continue aspirin, Lipitor, hydrochlorothiazide, losartan, metoprolol, Brilinta * In regards to alcohol use disorder continue [facility] protocol monitor for withdrawal * Cardiogram ordered and pending * Status full code Objective - Vital Signs Vital signs: Vital Signs Temp 97.5 F L 10/18/23 08:00 Pulse 64 10/18/23 08:00 Resp 21 10/18/23 08:00 BP 121/68 10/18/23 08:00 Pulse Ox 94 L 10/18/23 08:00 FiO2 Intake & Output 10/17/23 10/18/23 10/18/23 18:59 06:59 18:59 Intake Total 754 800 0 Output Total 200 800 325 Balance 554 0 -325 Weight 107.955 kg 107.8 kg Intake: IV 754 220 0 Sodium Chloride 0.9% 1, 300 220 0 000 ml In Empty Bag 1 bag @ 75 mls/hr IV .[id number] [facility] Rx#:[id number] Oral 380 Tube Feeding 200 Output: Urine 200 800 325 Other: Voiding Method Urinal Urinal Urinal # Voids 1 - Labs CBC & Chem 7: 10/18/23 05:51 10/18/23 05:51 Labs: Abnormal Lab Results - Last 24 Hours (Table) 10/17/23 10/17/23 10/17/23 Range/Units 13:39 15:29 17:33 WBC (3.8-10.6) k/uL Hgb 18.0 H (13.0-17.5) gm/dL Hct 54.4 H (39.0-53.0) % Neutrophils # (1.3-7.7) k/uL Sodium (137-145) mmol/L Carbon Dioxide (22-30) mmol/L BUN (9-20) mg/dL Glucose (74-99) mg/dL POC Glucose (mg/dL) 145 H (70-110) mg/dL AST (17-59) U/L Troponin I 2.050 H* (0.000-0.034) ng/mL 10/17/23 10/18/23 10/18/23 Range/Units 17:33 05:51 05:51 WBC 11.9 H (3.8-10.6) k/uL Hgb (13.0-17.5) gm/dL Hct 54.4 H (39.0-53.0) % Neutrophils # 8.9 H (1.3-7.7) k/uL Sodium 136 L (137-145) mmol/L Carbon Dioxide 20 L (22-30) mmol/L BUN 22 H (9-20) mg/dL Glucose 139 H 160 H (74-99) mg/dL POC Glucose (mg/dL) (70-110) mg/dL AST 71 H (17-59) U/L Troponin I (0.000-0.034) ng/mL
[2023-10-19 06:42] LABS: HCT 53.5 % (39.0-53.0); HGB 17.2 gm/dL (13.0-17.5); MCHC 32.2 g/dL (31.0-37.0); MCV 96.1 fL (80.0-100.0); Mean Platelet Volume 7.5; Platelet Count 256 k/uL (150-450); RBC 5.56 m/uL (4.30-5.90); WBC 9.8 k/uL (3.8-10.6)
[2023-10-19 06:53] LABS: African American GFR (CKD) >90 (>60 ml/min/1.73 sqM); Anion Gap 7 mmol/L; Blood Urea Nitrogen 22 mg/dL (9-20); Calcium 8.9 mg/dL (8.4-10.2); Carbon Dioxide 24 mmol/L (22-30); Chloride 107 mmol/L (98-107); Glucose 136 mg/dL (74-99); Non-African American GFR(CKD) 90 (>60 ml/min/1.73 sqM); Potassium 3.7 mmol/L (3.5-5.1); Sodium 138 mmol/L (137-145)
--- NOTE | 2023-10-19 10:18 | P.PN ---
Subjective Progress Note Date: 10/19/23 Principal diagnosis: Acute coronary syndrome The patient is a 53-year-old gentleman with history of smoking and alcohol was admitted with acute anterior ST deviation myocardial infarction and underwent an emergent heart catheterization and stenting of the LAD. The echo still pending. October 18, 2023 The patient was seen and evaluated this morning. He is asymptomatic. He is hemodynamically stable. He is maintaining normal sinus mechanism. The echo still pending. He is on dual antiplatelet therapy along with high intensity statin. Will consider placing nicotine patches. Follow-up on the echocardiogram. The examination overall appears to be unremarkable with stable vital signs and clear breathing sounds bilaterally and regular rate and rhythm and no edema was noted and the right radial site is soft and nontender with no bruises October 19, 2023 The patient was seen and evaluated this morning. He is asymptomatic. He is hemodynamically stable. The pressure appears to be under good control on the current medical regimen. He is on dual antiplatelet therapy along with high intensity statin along with anti-ischemic medications. The echo showed normal LV systolic function. I advise monitoring the patient for additional 24 hours with possible discharge home tomorrow morning. The examination revealed regular rhythm with clear breathing sounds bilaterally and no carotid bruit and no edema was noted Assessment Acute anterior ST ovation myocardial infarction History of alcohol use History of smoking Plan Continue the current medical regimen The echo showed normal LV systolic function Monitor the patient for additional 24 hours Follow-up with the patient Objective - Vital Signs Vital signs: Vital Signs Temp 97.5 F L 10/19/23 09:26 Pulse 69 10/19/23 09:26 Resp 18 10/19/23 09:26 BP 132/75 10/19/23 09:26 Pulse Ox 97 10/19/23 09:26 FiO2 Intake & Output 10/18/23 10/19/23 10/19/23 18:59 06:59 18:59 Intake Total 1080 Output Total 325 Balance 755 Weight 107.8 kg 106 kg Intake: IV 0 Sodium Chloride 0.9% 1, 0 000 ml In Empty Bag 1 bag @ 75 mls/hr IV .[id number] [facility] Rx#:[id number] Oral 1080 Output: Urine 325 Other: Voiding Method Urinal Urinal # Voids 2 3 - Labs CBC & Chem 7: 10/19/23 06:11 10/19/23 06:11 Labs: Abnormal Lab Results - Last 24 Hours (Table) 10/19/23 10/19/23 Range/Units 06:11 06:11 Hct 53.5 H (39.0-53.0) % BUN 22 H (9-20) mg/dL Glucose 136 H (74-99) mg/dL
--- NOTE | 2023-10-19 13:04 | P.PN ---
Subjective Progress Note Date: 10/19/23 * 53-year-old male with a past medical history significant for hypertension, nicotine dependence, daily alcohol use, and marijuana use. * Patient states that he went to lunch and afterwards began to consume alcohol and smoke marijuana. He states shortly afterwards he began to have chest pain in the middle of his chest. He states that feels like a pressure type sensation in the middle of his chest. He also reports he is a current cigarette smoker and uses marijuana. He endorses a family history of premature coronary artery disease and states his dad had a heart attack in his 40s. EKG reveals sinus mechanism with diffuse ST elevation inferiorly and in precordial leads. Reciprocal T wave inversions in aVR and aVL. Chest xray mild cardiomegaly and possible mild pulmonary vascular congestion. No pulmonary edema or focal infiltrate. * Patient was noted to have ST elevated [place] and was taken to cardiac Clinical Assessment Manager for further evaluation * Patient was noted to have Plaque rupture and thrombus formation involving the mid LAD. Mildly elevated left-sided filling pressure. S/p PCI * 10/18/23 : Patient seen and evaluated at bedside patient transferred out of medical ICU. Postprocedure CBC reviewed WBC 11.9 likely reactive. Electrolyte panel reviewed sodium 137 potassium 4 BUN 22 creatinine 1.02. Echocardiogram pending patient with monitored for alcohol withdrawl No chest pain * 10/19/2023: Patient seen and evaluated bedside, patient remains chest pain-free not having significant alcohol withdrawal. Patient to be discharged within the next 24 hours REVIEW OF SYSTEMS: Pain on admission resolved CONSTITUTIONAL: No fever, no malaise, no fatigue. HEENT: No recent visual problems or hearing problems. Denied any sore throat. CARDIOVASCULAR: Pain on admission resolved PULMONARY: No shortness of breath, no cough, no hemoptysis. GASTROINTESTINAL: No diarrhea, no nausea, no vomiting, no abdominal pain. NEUROLOGICAL: No headaches, no weakness, no numbness. HEMATOLOGICAL: Denies any bleeding or petechiae. GENITOURINARY: Denies any burning micturition, frequency, or urgency. MUSCULOSKELETAL/RHEUMATOLOGICAL: Denies any joint pain, swelling, or any muscle pain. ENDOCRINE: Denies any polyuria or polydipsia. PHYSICAL EXAMINATION: GENERAL: The patient is alert and oriented x3, not in any acute distress. Well developed, well nourished. HEENT: Pupils are round and equally reacting to light. EOMI. CARDIOVASCULAR: S1 and S2 present. No murmurs, rubs, or gallops. PULMONARY: Chest is clear to auscultation, no wheezing or crackles. ABDOMEN: Soft, nontender, nondistended, normoactive bowel sounds. No palpable organomegaly. MUSCULOSKELETAL: No joint swelling or deformity. EXTREMITIES: No cyanosis, clubbing, or pedal edema. NEUROLOGICAL: Gross neurological examination did not reveal any focal deficits. SKIN: No rashes. Assessment and plan * ST elevated [place], s/p stenting of LAD * Alcohol use disorder with impending withdrawal * Leukocytosis reactive RESOLVED * In regards to coronary artery disease, s/p PCI continue medical management. Continue aspirin, Lipitor, hydrochlorothiazide, losartan, metoprolol, Brilinta * Cardiogram completed preserved ejection fraction * In regards to alcohol use disorder continue [facility] protocol monitor for withdrawal * Cardiogram ordered and pending * Status full code Objective - Vital Signs Vital signs: Vital Signs Temp 97.5 F L 10/19/23 09:26 Pulse 69 10/19/23 12:03 Resp 16 10/19/23 12:03 BP 132/84 10/19/23 12:03 Pulse Ox 97 10/19/23 12:42 FiO2 Intake & Output 10/18/23 10/19/23 10/19/23 18:59 06:59 18:59 Intake Total 1080 358 Output Total 325 Balance 755 358 Weight 107.8 kg 106 kg Intake: IV 0 Sodium Chloride 0.9% 1, 0 000 ml In Empty Bag 1 bag @ 75 mls/hr IV .[id number] [facility] Rx#:[id number] Oral 1080 358 Output: Urine 325 Other: Voiding Method Urinal Urinal # Voids 2 3 1 - Labs CBC & Chem 7: 10/19/23 06:11 10/19/23 06:11 Labs: Abnormal Lab Results - Last 24 Hours (Table) 10/19/23 10/19/23 Range/Units 06:11 06:11 Hct 53.5 H (39.0-53.0) % BUN 22 H (9-20) mg/dL Glucose 136 H (74-99) mg/dL
[2023-10-19 16:25] VITALS: RESP 18
[2023-10-20 05:38] VITALS: PULSE 63
[2023-10-20 09:07] VITALS: BP 116/77; TEMP 98.1
--- NOTE | 2023-10-20 11:25 | P.PN ---
Subjective Progress Note Date: 10/20/23 Principal diagnosis: Acute coronary syndrome The patient is a 53-year-old gentleman with history of smoking and alcohol was admitted with acute anterior ST deviation myocardial infarction and underwent an emergent heart catheterization and stenting of the LAD. The echo still pending. October 18, 2023 The patient was seen and evaluated this morning. He is asymptomatic. He is hemodynamically stable. He is maintaining normal sinus mechanism. The echo still pending. He is on dual antiplatelet therapy along with high intensity statin. Will consider placing nicotine patches. Follow-up on the echocardiogram. The examination overall appears to be unremarkable with stable vital signs and clear breathing sounds bilaterally and regular rate and rhythm and no edema was noted and the right radial site is soft and nontender with no bruises October 19, 2023 The patient was seen and evaluated this morning. He is asymptomatic. He is hemodynamically stable. The pressure appears to be under good control on the current medical regimen. He is on dual antiplatelet therapy along with high intensity statin along with anti-ischemic medications. The echo showed normal LV systolic function. I advise monitoring the patient for additional 24 hours with possible discharge home tomorrow morning. The examination revealed regular rhythm with clear breathing sounds bilaterally and no carotid bruit and no edema was noted October 20, 2023 The patient was seen this morning and he is doing well from a cardiovascular standpoint of view and reports no cardiovascular symptoms and remained hemodynamically stable. He is on dual antiplatelet therapy along with high intensity statin. The echo showed normal LV systolic function with the patient would like to go home. From the cardiovascular standpoint of view, the patient can be discharged home. The examination revealed regular rhythm with clear breathing sounds bilaterally and no edema was noted Assessment Acute anterior ST ovation myocardial infarction History of alcohol use History of smoking Plan Continue the current medical regimen The echo showed normal LV systolic function The patient can be discharged home Objective - Vital Signs Vital signs: Vital Signs Temp 98.1 F 10/20/23 08:57 Pulse 63 10/20/23 08:57 Resp 18 10/20/23 08:57 BP 116/77 10/20/23 08:57 Pulse Ox 97 10/20/23 08:57 FiO2 Intake & Output 10/19/23 10/20/23 10/20/23 18:59 06:59 18:59 Intake Total 716 579 580 Balance 716 579 580 Weight 107 kg Intake: Oral 716 579 580 Other: Voiding Method Urinal Urinal Urinal # Voids 2 1 2 - Labs CBC & Chem 7: 10/19/23 06:11 10/19/23 06:11
--- NOTE | 2023-10-20 11:39 | P.DS ---
Providers Date of admission: 10/17/23 14:11 Expected date of discharge: 10/20/23 Attending physician: Rodo Sagastume Consults: 10/17/23 14:11 Consult Physician Stat Consulting Provider: Zi Farah Consult Reason/Comments: stemi Do you want consulting provider notified?: Already Contacted 10/17/23 15:03 Consult Physician Routine Consulting Provider: Zi Farah Consult Reason/Comments: Post Interventional patient Do you want consulting provider notified?: Already Contacted Primary care physician: Stated None Hospital Course: * 53-year-old male with a past medical history significant for hypertension, nicotine dependence, daily alcohol use, and marijuana use. * Patient states that he went to lunch and afterwards began to consume alcohol and smoke marijuana. He states shortly afterwards he began to have chest pain in the middle of his chest. He states that feels like a pressure type sensation in the middle of his chest. He also reports he is a current cigarette smoker and uses marijuana. He endorses a family history of premature coronary artery disease and states his dad had a heart attack in his 40s. EKG reveals sinus mechanism with diffuse ST elevation inferiorly and in precordial leads. Reciprocal T wave inversions in aVR and aVL. Chest xray mild cardiomegaly and possible mild pulmonary vascular congestion. No pulmonary edema or focal infiltrate. * Patient was noted to have ST elevated [place] and was taken to cardiac General I Farmworker for further evaluation * Patient was noted to have Plaque rupture and thrombus formation involving the mid LAD. Mildly elevated left-sided filling pressure. S/p PCI * 10/18/23 : Patient seen and evaluated at bedside patient transferred out of medical ICU. Postprocedure CBC reviewed WBC 11.9 likely reactive. Electrolyte panel reviewed sodium 137 potassium 4 BUN 22 creatinine 1.02. Echocardiogram pending patient with monitored for alcohol withdrawl No chest pain * 10/19/2023: Patient seen and evaluated bedside, patient remains chest pain-free not having significant alcohol withdrawal. Patient to be discharged within the next 24 hours * 10/20/23: Patient seen and evaluated at bedside, per cardiology okay to discharge, patient remains asymptomatic. Outpatient follow-up with cardiology, medication prescription provided REVIEW OF SYSTEMS: Pain on admission resolved CONSTITUTIONAL: No fever, no malaise, no fatigue. HEENT: No recent visual problems or hearing problems. Denied any sore throat. CARDIOVASCULAR: Pain on admission resolved PULMONARY: No shortness of breath, no cough, no hemoptysis. GASTROINTESTINAL: No diarrhea, no nausea, no vomiting, no abdominal pain. NEUROLOGICAL: No headaches, no weakness, no numbness. HEMATOLOGICAL: Denies any bleeding or petechiae. GENITOURINARY: Denies any burning micturition, frequency, or urgency. MUSCULOSKELETAL/RHEUMATOLOGICAL: Denies any joint pain, swelling, or any muscle pain. ENDOCRINE: Denies any polyuria or polydipsia. PHYSICAL EXAMINATION: GENERAL: The patient is alert and oriented x3, not in any acute distress. Well developed, well nourished. HEENT: Pupils are round and equally reacting to light. EOMI. CARDIOVASCULAR: S1 and S2 present. No murmurs, rubs, or gallops. PULMONARY: Chest is clear to auscultation, no wheezing or crackles. ABDOMEN: Soft, nontender, nondistended, normoactive bowel sounds. No palpable organomegaly. MUSCULOSKELETAL: No joint swelling or deformity. EXTREMITIES: No cyanosis, clubbing, or pedal edema. NEUROLOGICAL: Gross neurological examination did not reveal any focal deficits. SKIN: No rashes. Assessment and plan * ST elevated [place], s/p stenting of LAD * Alcohol use disorder with impending withdrawal * Leukocytosis reactive RESOLVED * In regards to coronary artery disease, s/p PCI continue medical management. Continue aspirin, Lipitor, hydrochlorothiazide, losartan, metoprolol, Brilinta * Echo Cardiogram completed preserved ejection fraction * In regards to alcohol use disorder, patient counseled, was monitored on [facility] protocol Patient Condition at Discharge: Good Plan - Discharge Summary Discharge Rx Participant: No New Discharge Prescriptions: New Aspirin 81 mg PO DAILY 60 Days #60 tab Ticagrelor [Brilinta] 90 mg PO BID 60 Days #120 tab Nicotine 14Mg/24Hr Patch [Habitrol] 1 patch TRANSDERM DAILY 15 Days #15 patch Atorvastatin [Lipitor] 80 mg PO HS 90 Days #90 tab Metoprolol Tartrate [Lopressor] 50 mg PO BID 60 Days #120 tab Continue Losartan Potassium 100 mg PO DAILY hydroCHLOROthiazide 12.5 mg PO DAILY Venlafaxine HCl [Effexor] 100 mg PO DAILY Discharge Medication List Losartan Potassium 100 mg PO DAILY 10/02/15 [History] Venlafaxine HCl [Effexor] 100 mg PO DAILY 06/21/23 [History] hydroCHLOROthiazide 12.5 mg PO DAILY 06/21/23 [History] Aspirin 81 mg PO DAILY 60 Days #60 tab 10/19/23 [Rx] Atorvastatin [Lipitor] 80 mg PO HS 90 Days #90 tab 10/19/23 [Rx] Metoprolol Tartrate [Lopressor] 50 mg PO BID 60 Days #120 tab 10/19/23 [Rx] Nicotine 14Mg/24Hr Patch [Habitrol] 1 patch TRANSDERM DAILY 15 Days #15 patch 10/19/23 [Rx] Ticagrelor [Brilinta] 90 mg PO BID 60 Days #120 tab 10/19/23 [Rx] Follow up Appointment(s)/Referral(s): Javier Lindquist MD [STAFF PHYSICIAN] - 1 Week (Call Office and tell them you were discharged 10/19 after a STEMI heart attack and you need a follow up appointment ) None,Stated [Primary Care Provider] - 1-2 days (Keep Appointment with Primary Care Provider ) Patient Instructions/Handouts: Heart Healthy Diet (DC) Activity/Diet/Wound Care/Special Instructions: CARDIAC CATH Support your puncture site by applying firm, steady pressure whenever you cough, laugh, sneeze or bear down to have a bowel movement (2-day restriction). Watch for any excessive bruising, active bleeding, a firm knot forming under your skin, extreme tenderness and signs of infection (redness, swelling, fever). Shower daily, do not soak puncture in a tub bath, jacuzzi, pool, ndiaye etc. for 1 week. This is to prevent risk of infection. Drink plenty of fluids the day of and day after your procedure to flush contrast dye out of your kidneys. Take all medications as directed. Never stop any new medication without your physicians OK. No driving for 2 days after procedure. 10- pound weight lifting restriction for 1 week. Low sodium/low fat diet. Activity limited until follow up appointment with your waiter/waitress tourist class. In case of any problems, please call [facility] [place] @ [phone]. Just some important facts for you to know after your stent placement Aspirin as anti-platelet therapy - Aspirin lessens the chance of heart attack and stroke. It helps prevent blood clots from forming, allowing the blood to flow more easily. Each day, you will take one 81 mg (non-enteric coated) tablet daily. Do not stop unless instructed by your doctor. Anti-platelet Therapy. -In addition to aspirin, you will take one additional anti-platelet medication daily. This will help prevent a clot from forming in your stent: Ticagreler (Brillinta) -You will need to take your anti-platelet medicine every day for 12 months -Please consult your heart doctor before you stop this medicine. -They may want you to continue for a longer period of time. Statins -A statin medication lowers cholesterol levels in the blood. This helps slow the progression of heart disease. - Please take your statin medication as prescribed by your doctor. -You may be taking one of the following statins: Lipitor Beta blockers -Your Medication: Metoprolol Is a medication that protects your heart from stress and can prevent future heart attacks. It can slow your heart rate. It can take weeks for your body to get used to a beta nathalia. The dose may need to be changed a few times as your body adjusts Do not stop taking these medicines without talking to your doctor. -Take all other medicines as directed by your doctor. Do not take any extra aspirin or ibuprofen. They can increase your risk of bleeding. Many mulb-yth-blxcpox drugs contain aspirin. If you are unsure about what the drug contains, check with your pharmacist before taking it. -For mild discomfort, you may take plain Tylenol (acetaminophen). Follow dose directions, but do not take more than 4,000 mg of acetaminophen in 24 hours. Contact your doctor right away or go to the nearest hospital Emergency Room if you have: -Severe angina or chest pain. (This may be a sign of a problem with your stent.) -Excessive bruising, blood in urine/stool or black tarry stools. Healthy LifeStyle It is important to keep a heart healthy lifestyle. This can improve your long- term health and decrease your risk for heart attacks. -Managing your blood cholesterol, blood pressure, weight, and stress. -The importance of regular exercise. -Heart Healthy Diet: Include more plants in your diet. Eat lots of fresh vegetables and fresh fruits. Eat good fats: plant based oils, avocado, nuts, beans, legumes. Eat more seafood. Limit Meat. Switch to whole grains. -Avoid fried foods and animal fats and processed meats Follow up with your PCP and [facility] Thank you for allowing us to participate in your care, it was truly a pleasure having you for our patient!!! Discharge Disposition: HOME SELF-CARE
--- NOTE | 2023-10-22 09:16 | CA ---
Transthoracic Echo Report Name: Jonny Rey Age: 53 Gender: M : 1970 Exam Date: 10/17/2023 16:23 Exam Location: [facility] Ht (in): 71 Wt (lb): 238 Ordering Physician: Javier Lindquist MD ([id number]) Attending/Referring Phys: Manager Perioperative Bess Escamilla RCS Procedure CPT: Indications: stemi Cardiac Hx: Technical Quality: Technically difficult study Contrast 1: Definity Total Dose (mL): 2 Contrast 2: Total Dose (mL): MEASUREMENTS (Male / Female) Normal Values 2D ECHO LVOT Diameter 2.1 cm LV Diastolic Volume MOD BP 105.8 cm??? 67 - 155 / 56 - 104 cm??? LV Systolic Volume MOD BP 31.4 cm??? 22 - 58 / 19 - 49 cm??? LV Ejection Fraction MOD BP 70.3 % >= 55 % LV Cardiac Index MOD BP 2238.9 cm???/min???m??? LV Diastolic Volume MOD 4C 117.4 cm??? LV Systolic Volume MOD 4C 28.6 cm??? LV Ejection Fraction MOD 4C 75.7 % LV Cardiac Index MOD 4C 2673.8 cm???/min???m??? LV Diastolic Length 4C 9.5 cm LV Systolic Length 4C 7.6 cm LV Diastolic Volume MOD 2C 93.6 cm??? LV Systolic Volume MOD 2C 33.8 cm??? LV Ejection Fraction MOD 2C 63.9 % LV Cardiac Index MOD 2C 1798.6 cm???/min???m??? LV Diastolic Length 2C 9.2 cm LV Systolic Length 2C 7.8 cm LA Volume 64.4 cm??? 18 - 58 / 22 - 52 cm??? LA Volume Index 27.3 cm???/m??? 16 - 28 cm???/m??? Ascending Aorta Diameter 3.9 cm DOPPLER AV Peak Velocity 102.5 cm/s AV Peak Gradient 4.2 mmHg AV Mean Velocity 76.2 cm/s AV Mean Gradient 2.5 mmHg AV Velocity Time Integral 17.7 cm LVOT Peak Velocity 110.2 cm/s LVOT Peak Gradient 4.9 mmHg LVOT Velocity Time Integral 22.5 cm LVOT Stroke Volume 77.2 cm??? LVOT Stroke Volume Index 34.0 ml/m??? LVOT Cardiac Index 2323.4 cm???/min???m??? AV Area Cont Eq vti 4.4 cm??? AV Area Cont Eq pk 3.7 cm??? MV Area PHT 4.0 cm??? Mitral E Point Velocity 52.8 cm/s Mitral A Point Velocity 80.2 cm/s Mitral E to A Ratio 0.7 MV Deceleration Time 188.7 ms PV Peak Velocity 100.8 cm/s PV Peak Gradient 4.1 mmHg FINDINGS Left Ventricle Left ventricular ejection fraction is estimated at 65 %. Left ventricular cavity size normal. Left ventricular wall thickness normal. No obvious regional wall motion abnormalities. Right Ventricle Normal right ventricular size and function. Unable to estimate the right ventricular systolic pressure. Right Atrium Normal right atrial size. Left Atrium Mildly increased left atrial volume. Mildly increased left atrial area. Mitral Valve Structurally normal mitral valve. No mitral stenosis, regurgitation or prolapse. Aortic Valve Trileaflet aortic valve. No aortic valve stenosis or regurgitation. Tricuspid Valve Structurally normal tricuspid valve. No tricuspid stenosis. No tricuspid regurgitation. Pulmonic Valve Pulmonic valve not well visualized. No pulmonic stenosis. No pulmonic regurgitation. Pericardium No pericardial effusion. Aorta Normal size aortic root and proximal ascending aorta. CONCLUSIONS Technically suboptimal study Normal LV systolic function Mildly enlarged left atrium Previewed by: Dr. Troy Bravo MD (Electronically Signed) Final Date: 18 October 2023 10:30
== END 2023-10-20 13:26 | disposition home or self-care (01) | DRG 322 ==
LOC: EC 13:27 → 2SICU 14:11 → 3SCARD 10-18 08:50
PROVIDERS: ADMIT Family Medicine; ATTEND Family Medicine
PROC: 027035Z Dilation of Coronary Artery, One Artery with Two Drug-eluting Intraluminal Devices, Percutaneous Approach (ICD-10-PCS; principal; 2023-10-17 13:49)
PROC: B240ZZ3 Ultrasonography of Single Coronary Artery, Intravascular (ICD-10-PCS; 2023-10-17 13:49)
PROC: 4A023N7 Measurement of Cardiac Sampling and Pressure, Left Heart, Percutaneous Approach (ICD-10-PCS; 2023-10-17 13:49)
PROC: B2111ZZ Fluoroscopy of Multiple Coronary Arteries using Low Osmolar Contrast (ICD-10-PCS; 2023-10-17 13:49)
DX: I21.09 ST elevation (STEMI) myocardial infarction involving other coronary artery of anterior wall (principal); I51.3 Intracardiac thrombosis, not elsewhere classified; I11.9 Hypertensive heart disease without heart failure; F10.10 Alcohol abuse, uncomplicated; I25.119 Atherosclerotic heart disease of native coronary artery with unspecified angina pectoris; F17.210 Nicotine dependence, cigarettes, uncomplicated; D72.828 Other elevated white blood cell count; Y90.0 Blood alcohol level of less than 20 mg/100 ml; Z79.899 Other long term (current) drug therapy; Z82.49 Family history of ischemic heart disease and other diseases of the circulatory system
CPT/HCPCS: 36415; 71045; 76937; 80048; 80053; 80320; 82150; 83036; 83690; 83735; 84484; 85025; 85027; 85610; 85730; 92978; 93005; 93306; 93458; 94760; 96374; 99285

== ENCOUNTER 2024-03-02 21:19 | Observation (INO) | payer BC ==
--- NOTE | 2024-03-02 21:47 | ED ---
General Adult HPI - General Chief complaint: Chest Pain Stated complaint: chest pain Time Seen by Provider: 03/02/24 21:38 Source: patient, RN notes reviewed, old records reviewed Mode of arrival: wheelchair Limitations: no limitations - History of Present Illness Initial comments: Is a 53-year-old male with past medical history remarkable for VT with cardiac stenting, hypertension emergency department complaining of chest pressure with associated shortness of breath for 1 day. States it is only on exertion. Has a history of alcohol abuse. States he only has symptoms with ambulation over the last day. Symptoms started last night. Unknown what is going on which is why he presents for evaluation. He is on aspirin and Plavix at home. Denies fever but does endorse a nonproductive cough. Denies abdominal pain. Denies lower extremity swelling. States at rest he has no symptoms. When he does have the chest discomfort, he describes it as a pressure sensation over his sternum. No radiation. No nausea or vomiting. No diaphoresis. Presents for further evaluation at this time.Currently asymptomatic. - Related Data Home Medications Medication Instructions Recorded Confirmed Losartan Potassium 100 mg PO DAILY 10/02/15 10/17/23 Venlafaxine HCl [Effexor] 100 mg PO DAILY 06/21/23 10/17/23 hydroCHLOROthiazide 12.5 mg PO DAILY 06/21/23 10/17/23 Previous Rx's Medication Instructions Recorded Aspirin 81 mg PO DAILY 60 Days #60 tab 10/19/23 Atorvastatin [Lipitor] 80 mg PO HS 90 Days #90 tab 10/19/23 Metoprolol Tartrate [Lopressor] 50 mg PO BID 60 Days #120 tab 10/19/23 Nicotine 14Mg/24Hr Patch [Habitrol] 1 patch TRANSDERM DAILY 15 Days 10/19/23 #15 patch Ticagrelor [Brilinta] 90 mg PO BID 60 Days #120 tab 10/19/23 Allergies Allergy/AdvReac Type Severity Reaction Status Date / Time No Known Allergies Allergy Verified 03/02/24 21:24 Review of Systems ROS Statement: Those systems with pertinent positive or pertinent negative responses have been documented in the HPI. Review of Systems: CONST: Denies fever EYES: Denies blurry vision ENT: Denies nasal congestion C/V: Denies Chest pain RESP: Denies shortness of breath GI: Denies abdominal pain : Denies dysuria SKIN: Denies rash. MSK: Denies joint pain. NEURO: Denies headache ROS Other: All systems not noted in ROS Statement are negative. Past Medical History Past Medical History: Hypertension Last Myocardial Infarction Date:: 10/17/23 History of Any Multi-Drug Resistant Organisms: None Reported Past Surgical History: Heart Catheterization With Stent Additional Past Surgical History / Comment(s): lipoma removed posterior scalp Past Anesthesia/Blood Transfusion Reactions: No Reported Reaction Date of Last Stent Placement:: 10/17/23 Past Psychological History: Anxiety Smoking Status: Current every day smoker Past Alcohol Use History: Heavy Past Drug Use History: None Reported General Exam - General Exam Comments Initial Comments: General: Appears in no acute distress. HEAD: Normal with no signs of head trauma. EYES: PERRLA, EOMI, conjunctiva normal, no discharge. ENT: Hearing grossly intact, normal oropharynx. RESPIRATORY: Clear breath sounds bilaterally. No wheezes, rales, or rhonchi. C/V: Regular rate and rhythm. S1 and S2 auscultated, no edema, peripheral pulses 2+ and intact throughout ABD: Abd is soft, nontender, nondistended EXT: Normal range of motion, no obvious deformity SKIN: No rashes or lesions observed on exposed skin. NEURO: Alert and oriented x 4. Cranial nerves II-XII intact. No focal sensory or strength deficits. Limitations: no limitations Course Vital Signs 03/02/24 03/02/24 03/02/24 21:20 21:56 22:24 Temperature 97.8 F 97.8 F Pulse Rate 68 66 67 Respiratory 18 18 Rate Blood Pressure 197/105 143/81 132/75 O2 Sat by Pulse 98 93 L 95 Oximetry Medical Decision Making - Medical Decision Making Was pt. sent in by a medical professional or institution (, PA, TRAFFIC SERGEANT, urgent care, hospital, or fpc...) When possible be specific @ -No Did you speak to anyone other than the patient for history (EMS, parent, family, police, friend...)? What history was obtained from this source @ -No Did you review nursing and triage notes (agree or disagree)? Why? @ -I reviewed and agree with nursing and triage notes Were old charts reviewed (outside hosp., previous admission, EMS record, old EKG, old radiological studies, urgent care reports/EKG's, fpc records)? Report findings @ -Reviewed chart from September 2023 when patient presented for STEMI. Differential Diagnosis (chest pain, altered mental status, abdominal pain women, abdominal pain men, vaginal bleeding, weakness, fever, dyspnea, syncope, headache, dizziness, GI bleed, back pain, seizure, CVA, palpatations, mental health, musculoskeletal)? @ -Differential Chest Pain: Stable Angina, Unstable Angina, STEMI, NSTEMI Aortic Dissection, Pneumothorax, Musculoskeletal, Esophageal Spasm GERD, Cholecystitis, Pancreatitis, Zoster, this is not meant to be an all-inclusive list. EKG interpreted by me (3pts min.). @ -As above X-rays interpreted by me (1pt min.). @ -Chest x-ray reveals no obvious acute cardiopulmonary process. CT interpreted by me (1pt min.). @ -None done U/S interpreted by me (1pt. min.). @ -None done What testing was considered but not performed or refused? (CT, X-rays, U/S, labs)? Why? @ -None What meds were considered but not given or refused? Why? @ -None Did you discuss the management of the patient with other professionals (professionals i.e. , PA, TRAFFIC SERGEANT, lab, RT, psych nurse, social work manager, golf tournament consultant, teacher, staff air defense officer, telephonic case manager)? Give summary @ -No Was smoking cessation discussed for >3mins.? @ -No Was critical care preformed (if so, how long)? @ -No Were there social determinants of health that impacted care today? How? (Cedric elessness, low income, unemployed, alcoholism, drug addiction, transportation, low edu. Level, literacy, decrease access to med. care, fpc, rehab)? @ -No Was there de-escalation of care discussed even if they declined (Discuss DNR or withdrawal of care, Hospice)? DNR status @ -No What co-morbidities impacted this encounter? (DM, HTN, Smoking, COPD, CAD, Cancer, CVA, ARF, Chemo, Hep., AIDS, mental health diagnosis, sleep apnea, morbid obesity)? @ -CAD with prior cardiac stenting, hypertension Was patient admitted / discharged? Hospital course, mention meds given and route, prescriptions, significant lab abnormalities, going to OR and other pertinent info. @ -Patient is a 53-year-old male who presents emergency department for exertional chest pressure and shortness of breath. At rest he has no symptoms. Denies lower extremity edema. Has a history of CAD with stenting. We will obtain cardiac workup. Patient will be given aspirin. Patient was in agreement this plan. Vital signs in triage remarkable for hypertension but we will repeat when patient is placed in room.Slightly prolonged QT on EKG and was administered 1 g of magnesium. Will continue to monitor. EKG shows no signs of acute ischemia. Chest x-ray shows no signs of acute cardiopulmonary process. Laboratory studies remarkable for troponin of indeterminate range at 0.013. BNP is elevated to 459 which is within acceptable limits for the patient's age. Patient is slightly toxic with alcohol with a level of 89. After the patient. He remains asymptomatic at rest. Patient's heart score is moderate at 4. I did recommend observation admission. He was in agreement this plan. Cardiology will be consulted. I spoke with [facility] Dr. Becker who accepted the admission. Undiagnosed new problem with uncertain prognosis? @ -No Drug Therapy requiring intensive monitoring for toxicity (Heparin, Nitro, Insulin, Cardizem)? @ -No Were any procedures done? @ -No Diagnosis/symptom? @ -Chest pain Acute, or Chronic, or Acute on Chronic? @ -Acute Uncomplicated (without systemic symptoms) or Complicated (systemic symptoms)? @ -Complicated Side effects of treatment? @ -None Exacerbation, Progression, or Severe Exacerbation] @ -No Poses a threat to life or bodily function? @ -Potentially, yes - Lab Data Result diagrams: 03/02/24 21:47 03/02/24 21:47 Lab Results 03/02/24 03/02/24 03/02/24 Range/Units 21:47 21:47 21:47 WBC 10.0 (3.8-10.6) k/uL RBC 5.47 (4.30-5.90) m/uL Hgb 17.4 (13.0-17.5) gm/dL Hct 51.5 (39.0-53.0) % MCV 94.2 (80.0-100.0) fL MCH 31.8 (25.0-35.0) pg MCHC 33.7 (31.0-37.0) g/dL RDW 13.2 (11.5-15.5) % Plt Count 274 (150-450) k/uL MPV 6.8 Neutrophils % 62 % Lymphocytes % 27 % Monocytes % 6 % Eosinophils % 3 % Basophils % 1 % Neutrophils # 6.2 (1.3-7.7) k/uL Lymphocytes # 2.7 (1.0-4.8) k/uL Monocytes # 0.6 (0-1.0) k/uL Eosinophils # 0.3 (0-0.7) k/uL Basophils # 0.1 (0-0.2) k/uL Sodium 143 (137-145) mmol/L Potassium 3.8 (3.5-5.1) mmol/L Chloride 106 (98-107) mmol/L Carbon Dioxide 27 (22-30) mmol/L Anion Gap 10 mmol/L BUN 15 (9-20) mg/dL Creatinine 1.16 (0.66-1.25) mg/dL Est GFR (CKD-EPI)AfAm 83 (>60 ml/min/1.73 sqM) Est GFR (CKD-EPI)NonAf 72 (>60 ml/min/1.73 sqM) Glucose 108 H (74-99) mg/dL Calcium 9.6 (8.4-10.2) mg/dL Magnesium 1.9 (1.6-2.3) mg/dL Total Bilirubin 0.6 (0.2-1.3) mg/dL AST 62 H (17-59) U/L ALT 52 H (4-49) U/L Alkaline Phosphatase 66 (38-126) U/L Troponin I 0.013 (0.000-0.034) ng/mL NT-Pro-B Natriuret Pep 459 pg/mL Total Protein 7.5 (6.3-8.2) g/dL Albumin 4.4 (3.5-5.0) g/dL Serum Alcohol 89 mg/dL - EKG Data -: EKG Interpreted by Me EKG Comments: 12-lead Electrocardiogram Interpretation Note EKG was reviewed and interpreted by myself. 12-lead ECG performed at 2138 is interpreted by me as revealing normal sinus rhythm at a rate of 67 beats per minute. Crowley is normal. ID interval is 204 ms, QRS duration is 96 ms, QTc is 486 ms.. There were no ST or T wave abnormalities to suggest myocardial ischemia or injury. R wave progression across the precordium was satisfactory. By my interpretation this EKG is non-diagnostic for acute ischemia. Disposition Clinical Impression: Chest pain Disposition: ADMITTED IP TO THIS HOSP Condition: Stable Referrals: None,Stated [Primary Care Provider] - 1-2 days Time of Disposition: 22:33
[2024-03-02 21:56] LABS: Basophils # (A) 0.1 k/uL (0-0.2); Basophils % (A) 1 %; Eosinophils # (A) 0.3 k/uL (0-0.7); Eosinophils % (A) 3 %; HCT 51.5 % (39.0-53.0); HGB 17.4 gm/dL (13.0-17.5); Lymphocytes # (A) 2.7 k/uL (1.0-4.8); Lymphocytes % (A) 27 %; MCH 31.8 pg (25.0-35.0); MCHC 33.7 g/dL (31.0-37.0); MCV 94.2 fL (80.0-100.0); Mean Platelet Volume 6.8; Monocytes # (A) 0.6 k/uL (0-1.0); Monocytes % (A) 6 %; Neutrophils # (A) 6.2 k/uL (1.3-7.7); Neutrophils % (A) 62 %; Platelet Count 274 k/uL (150-450); RBC 5.47 m/uL (4.30-5.90); RDW 13.2 % (11.5-15.5)
[2024-03-02] MEDS: ASPIRIN 81 MG PO STA (22:01)
[2024-03-02 22:06] LABS: ALT 52 U/L (4-49); AST 62 U/L (17-59); African American GFR (CKD) 83 (>60 ml/min/1.73 sqM); Albumin 4.4 g/dL (3.5-5.0); Alkaline Phosphatase 66 U/L (38-126); Anion Gap 10 mmol/L; Blood Urea Nitrogen 15 mg/dL (9-20); Calcium 9.6 mg/dL (8.4-10.2); Carbon Dioxide 27 mmol/L (22-30); Chloride 106 mmol/L (98-107); Glucose 108 mg/dL (74-99); Magnesium 1.9 mg/dL (1.6-2.3); Non-African American GFR(CKD) 72 (>60 ml/min/1.73 sqM); Potassium 3.8 mmol/L (3.5-5.1); Sodium 143 mmol/L (137-145); Total Bilirubin 0.6 mg/dL (0.2-1.3); Total Protein 7.5 g/dL (6.3-8.2)
[2024-03-02] MEDS: MAGNESIUM SULFATE-D5W PMX 1 GM in DEXTROSE/WATER 1 100ML.BAG IVPB ONE (22:09)
[2024-03-02 22:14] LABS: Alcohol 89 mg/dL; NT-Pro-B-Type Natriuretic Pept 459 pg/mL
--- NOTE | 2024-03-02 22:30 | XR ---
EXAMINATION TYPE: XR chest 2V DATE OF EXAM: 03/02/2024 COMPARISON: Chest x-ray October 17, 2023 HISTORY: Chest pain TECHNIQUE: Frontal and lateral views of the chest are obtained. FINDINGS: There is no focal air space opacity, pleural effusion, or pneumothorax seen. Stable mild c ardiomegaly. The osseous structures are intact. IMPRESSION: Mild cardiomegaly without acute pulmonary process.
[2024-03-02] MEDS ORDERED: NALOXONE 0.4 MG/ML 1 ML VIAL IV PRN (22:33)
[2024-03-02] MEDS ORDERED: ONDANSETRON 4 MG/2 ML VIAL IVP PRN (22:33)
[2024-03-02 22:54] LABS: Partial Thromboplastin Time 23.9 sec (22.0-30.0)
[2024-03-02] MEDS: SODIUM CHLORIDE 0.9% 1,000 ML IV SCH (23:22)
[2024-03-02] MEDS: HEPARIN SODIUM,PORCINE 5,000 UNIT/ML 1 ML VIAL SQ SCH (23:25)
--- NOTE | 2024-03-03 02:30 | P.HPIM ---
History of Present Illness H&P Date: 03/02/24 Chief Complaint: chest pain 53 year old male with recent IN s/p stent 5 months ago Patient coming in reporting sudden onset chest pain while he was shopping at [employer] he powered through it and continue to walk and shop. He denies any associated dizziness lightheadedness nausea or vomiting. However he has been dealing with exertional shortness of breath with mild to moderate exertion over the past few months he reports that the symptoms are similar to his heart attack back in September he adds that when he left the hospital he felt great but then just couple weeks after he started experiencing exertional dyspnea that has been getting worse gradually since then. These are the main concerns that made him decide to come to the hospital for evaluation along with occasional high blood pressure readings. Otherwise patient claims to be compliant with all his medications he takes the aspirin and the Brilinta he takes his cholesterol pills he has not modified his lifestyle continues to smoke and eats a lot of junk food patient does not exercise and he drinks heavily on the weekends sometimes. He denies any recent travel or hospital stay denies any history of blood clots denies any leg swelling denies any fevers chills nausea vomiting abdominal pain changes in bowel or urinary habits Review of systems Pertinent positives and negatives as mentioned in HPI Physical examOn physical exam General appearance talkative pleasant, not in any acute distress pupils equal round reactive to light and accommodation Psych patient alert oriented x 3, fair judgment lungs clear to auscultation bilaterally no wheezing rhonchi or rales Cardiovascular normal S1-S2 Regular rate and rhythm no murmurs gallops or rubs, no peripheral leg edema, peripheral pulses dorsalis pedis bilateral equal and intact Abdomen soft lax no tenderness to palpation nondistended bowel sounds positive Neuro strength 5 out of 5 throughout no focal neurodeficits identified cranial nerves II to XII grossly intact Past Medical History Past Medical History: Hypertension Last Myocardial Infarction Date:: 10/17/23 History of Any Multi-Drug Resistant Organisms: None Reported Past Surgical History: Heart Catheterization With Stent Additional Past Surgical History / Comment(s): lipoma removed posterior scalp Past Anesthesia/Blood Transfusion Reactions: No Reported Reaction Date of Last Stent Placement:: 10/17/23 Past Psychological History: Anxiety Smoking Status: Current every day smoker Past Alcohol Use History: Heavy Past Drug Use History: None Reported Medications and Allergies Home Medications Medication Instructions Recorded Confirmed Type Losartan Potassium 100 mg PO DAILY 10/02/15 10/17/23 History Venlafaxine HCl [Effexor] 100 mg PO DAILY 06/21/23 10/17/23 History hydroCHLOROthiazide 12.5 mg PO DAILY 06/21/23 10/17/23 History Aspirin 81 mg PO DAILY 60 Days #60 tab 10/19/23 Rx Atorvastatin [Lipitor] 80 mg PO HS 90 Days #90 tab 10/19/23 Rx Metoprolol Tartrate [Lopressor] 50 mg PO BID 60 Days #120 tab 10/19/23 Rx Nicotine 14Mg/24Hr Patch [Habitrol] 1 patch TRANSDERM DAILY 15 Days 10/19/23 Rx #15 patch Ticagrelor [Brilinta] 90 mg PO BID 60 Days #120 tab 10/19/23 Rx Allergies Allergy/AdvReac Type Severity Reaction Status Date / Time No Known Allergies Allergy Verified 03/02/24 21:24 Physical Exam Vitals: Vital Signs Temp Pulse Resp BP Pulse Ox 03/03/24 00:00 66 18 134/77 98 03/02/24 22:24 67 132/75 95 03/02/24 21:56 97.8 F 66 18 143/81 93 L 03/02/24 21:20 97.8 F 68 18 197/105 98 Intake and Output 03/02/24 03/02/24 03/03/24 14:59 22:59 06:59 Other: Weight 106.594 kg Results CBC & Chem 7: 03/02/24 21:47 03/02/24 21:47 Labs: Abnormal Lab Results - Last 24 Hours (Table) 03/02/24 Range/Units 21:47 Glucose 108 H (74-99) mg/dL AST 62 H (17-59) U/L ALT 52 H (4-49) U/L Assessment and Plan Assessment: 53-year-old male with recent myocardial infarction status post 2 stents 5 months ago since then he has been gradually having worsening exertional dyspnea today he came in for evaluation for sudden onset chest pain while shopping at the grocery store I discussed case with ED doctor and accepted the admission for atypical chest pain to rule out acute coronary syndrome Atypical chest pain rule out ACS Initial troponins negative EKG showed prolonged QT interval Electrolytes overall unremarkable with magnesium 1.9 potassium 3.8 and calcium 9.6. consider optimizing potassium with a goal of 4 one-time dose of K-Dur 20 mill equivalent One-time dose of magnesium sulfate IV piggyback 1 g for goal magnesium above 2 Nitro sublingual as needed for pain Cardiology consult Cardiac monitoring Monitor vital signs Continue with aspirin daily Slightly elevated liver enzymes transaminitis Hold statin Continue to monitor liver enzymes AST 62 ALT 52 Hypertension currently controlled Continue home blood pressure medications patient on multiple agents including hydrochlorothiazide metoprolol losartan Rest of the blood work unremarkable hemoglobin 17 white count 10 BUN 15 creatinine 1.16 Acute respiratory viral panel negative for COVID influenza and RSV Full code DVT prophylaxis heparin subcu 5000 units 3 times daily
[2024-03-03] MEDS: POTASSIUM CHLORIDE ER 20 MEQ TAB.ER PO STA (02:50)
[2024-03-03 07:38] LABS: Basophils # (A) 0.1 k/uL (0-0.2); Basophils % (A) 1 %; Eosinophils # (A) 0.2 k/uL (0-0.7); Eosinophils % (A) 2 %; HCT 49.4 % (39.0-53.0); HGB 15.8 gm/dL (13.0-17.5); Lymphocytes % (A) 30 %; MCH 30.5 pg (25.0-35.0); MCHC 31.9 g/dL (31.0-37.0); MCV 95.7 fL (80.0-100.0); Mean Platelet Volume 6.9; Monocytes # (A) 0.6 k/uL (0-1.0); Monocytes % (A) 6 %; Neutrophils # (A) 5.9 k/uL (1.3-7.7); Neutrophils % (A) 59 %; Platelet Count 245 k/uL (150-450); RBC 5.16 m/uL (4.30-5.90); RDW 13.3 % (11.5-15.5)
[2024-03-03 07:39] LABS: ALT 42 U/L (4-49); AST 29 U/L (17-59); African American GFR (CKD) >90 (>60 ml/min/1.73 sqM); Albumin 3.6 g/dL (3.5-5.0); Alkaline Phosphatase 77 U/L (38-126); Anion Gap 4 mmol/L; Blood Urea Nitrogen 22 mg/dL (9-20); Calcium 8.8 mg/dL (8.4-10.2); Carbon Dioxide 28 mmol/L (22-30); Chloride 106 mmol/L (98-107); Glucose 105 mg/dL (74-99); Non-African American GFR(CKD) 83 (>60 ml/min/1.73 sqM); Potassium 3.7 mmol/L (3.5-5.1); Sodium 138 mmol/L (137-145); Total Bilirubin 0.5 mg/dL (0.2-1.3); Total Protein 6.3 g/dL (6.3-8.2)
[2024-03-03] MEDS: ASPIRIN 81 MG PO SCH (07:58)
[2024-03-03] MEDS: hydroCHLOROthiazide 12.5 MG CAP PO SCH (07:58)
[2024-03-03] MEDS: CLOPIDOGREL 75 MG TAB PO SCH (07:58)
[2024-03-03] MEDS: METOPROLOL TARTRATE 50 MG TAB PO SCH (07:58)
[2024-03-03] MEDS: LOSARTAN 50 MG TAB PO SCH (07:59)
[2024-03-03] MEDS ORDERED: TICAGRELOR 90 MG TAB PO SCH (09:00)
[2024-03-03] MEDS ORDERED: HYDROcodone/APAP 5-325MG 1 EACH TAB PO PRN (10:50)
[2024-03-03] MEDS ORDERED: ACETAMINOPHEN TAB 325 MG TAB PO PRN (10:50)
--- NOTE | 2024-03-03 10:52 | P.CRDCN ---
History of Present Illness Consult date: 03/03/24 Reason for Consult (text): CAD History of present illness: This is a 53-year-old male patient of Dr. Lindquist with past medical history of coronary artery disease with prior stenting of the mid LAD in the setting of acute STEMI, hypertension, dyslipidemia, smoking and alcohol use. We have been asked to evaluate the patient for coronary artery disease. Some upper chest pressure without pain. Symptoms started while he was in bed. Reviewed results of testing with the patient. Last EtOH was 4 PM. Patient is smoking a half a pack per day. EKG: Sinus rhythm with no acute ST-T wave changes. Chest x-ray: Mild cardiomegaly without acute process Laboratory studies: Troponin negative x 3, BNP 459, alcohol level 89. Potassium 3.7, BUN 22 and creatinine 1.03. Influenza A, influenza B, RSV, COVID-19 not detected. Home cardiac medications according to office note: Aspirin 81 mg daily, hydrochlorothiazide 12.5 mg, Lipitor 80 mg daily, losartan 100 mg daily, metoprolol tartrate 50 mg daily, Plavix 75 mg daily. Cardiac catheterization 10/17/2023 revealed severe disease of the mid LAD status post stent of the mid LAD. Echocardiogram performed 10/17/2023 revealed normal EF. Review Of Systems: At the time of my exam: CONSTITUTIONAL: Denies fever or chills. HEENT: Denies blurred vision, vision changes, or eye pain. Denies hemoptysis CARDIOVASCULAR: Denies chest pain. Denies orthopnea. Denies PND. Denies palpitations RESPIRATORY: Denies shortness of breath. GASTROINTESTINAL: Denies abdominal pain. Denies nausea or vomiting. HEMATOLOGIC: Denies bleeding disorders. GENITOURINARY: Denies any blood in urine. SKIN: Denies puritis. Denies rash. Physical examination: Gen: This is a 53-year-old male in no acute distress VS: reviewed HEENT: Head is atraumatic, normocephalic. Pupils equal, round. Sclerae is anicteric. NECK: Supple. No JVD. LUNGS: Clear to auscultation. No wheezes or rhonchi. No intercostal retractions. HEART: Regular rate and rhythm. Systolic murmur. ABDOMEN: Soft No tenderness. EXTREMITIES: No pedal edema. No calf tenderness. NEUROLOGICAL: Patient is awake, alert and oriented x3. Assessment: Chest pain, acute coronary syndrome ruled out History of coronary artery disease with previous stenting of the LAD in September 2023 in the setting of STEMI EtOH intoxication Hypertension Hyperlipidemia Tobacco use and dependence Alcohol use Plan: Resume patient's home cardiac medications Patient is cleared to eat today Plan for stress echocardiogram test tomorrow Obtain 2-D echocardiogram and Doppler study to assess cardiac structure and function Smoking cessation. Patient will be provided the [employer] quit line information at discharge. Recommend sleep study as an outpatient Further recommendations to follow based upon clinical course Thank you kindly for this consultation. Nurse practitioner note has been reviewed, I agree with documented findings and plan of care. Patient was seen and examined. Patient states that he had some difficulty breathing and Past Medical History Past Medical History: Hypertension Last Myocardial Infarction Date:: 10/17/23 History of Any Multi-Drug Resistant Organisms: None Reported Past Surgical History: Heart Catheterization With Stent Additional Past Surgical History / Comment(s): lipoma removed posterior scalp Past Anesthesia/Blood Transfusion Reactions: No Reported Reaction Date of Last Stent Placement:: 10/17/23 Past Psychological History: Anxiety Smoking Status: Current every day smoker Past Alcohol Use History: Heavy Past Drug Use History: None Reported Medications and Allergies Home Medications Medication Instructions Recorded Confirmed Type Losartan Potassium 100 mg PO DAILY 10/02/15 10/17/23 History Venlafaxine HCl [Effexor] 100 mg PO DAILY 06/21/23 10/17/23 History hydroCHLOROthiazide 12.5 mg PO DAILY 06/21/23 10/17/23 History Aspirin 81 mg PO DAILY 60 Days #60 tab 10/19/23 Rx Atorvastatin [Lipitor] 80 mg PO HS 90 Days #90 tab 10/19/23 Rx Metoprolol Tartrate [Lopressor] 50 mg PO BID 60 Days #120 tab 10/19/23 Rx Nicotine 14Mg/24Hr Patch [Habitrol] 1 patch TRANSDERM DAILY 15 Days 10/19/23 Rx #15 patch Ticagrelor [Brilinta] 90 mg PO BID 60 Days #120 tab 10/19/23 Rx Allergies Allergy/AdvReac Type Severity Reaction Status Date / Time No Known Allergies Allergy Verified 03/02/24 21:24 Physical Exam Vitals: Vital Signs Temp Pulse Resp BP Pulse Ox 03/03/24 04:58 56 L 18 137/84 97 03/03/24 00:00 66 18 134/77 98 09/02/24 22:24 67 132/75 95 03/02/24 21:56 97.8 F 66 18 143/81 93 L 03/02/24 21:20 97.8 F 68 18 197/105 98 Intake and Output 03/02/24 03/03/24 03/03/24 22:59 06:59 14:59 Other: Weight 106.594 kg Results 03/03/24 06:22 03/03/24 06:22 Cardiac Enzymes 03/02/24 03/02/24 03/03/24 Range/Units 21:47 21:47 01:11 AST 62 H (17-59) U/L Troponin I 0.013 0.033 (0.000-0.034) ng/mL Coagulation 03/02/24 Range/Units 21:47 PT 11.0 (10.0-12.5) sec APTT 23.9 (22.0-30.0) sec CBC 03/02/24 Range/Units 21:47 WBC 10.0 (3.8-10.6) k/uL RBC 5.47 (4.30-5.90) m/uL Hgb 17.4 (13.0-17.5) gm/dL Hct 51.5 (39.0-53.0) % Plt Count 274 (150-450) k/uL Comprehensive Metabolic Panel 03/02/24 Range/Units 21:47 Sodium 143 (137-145) mmol/L Potassium 3.8 (3.5-5.1) mmol/L Chloride 106 (98-107) mmol/L Carbon Dioxide 27 (22-30) mmol/L BUN 15 (9-20) mg/dL Creatinine 1.16 (0.66-1.25) mg/dL Glucose 108 H (74-99) mg/dL Calcium 9.6 (8.4-10.2) mg/dL AST 62 H (17-59) U/L ALT 52 H (4-49) U/L Alkaline Phosphatase 66 (38-126) U/L Total Protein 7.5 (6.3-8.2) g/dL Albumin 4.4 (3.5-5.0) g/dL Current Medications Generic Name Dose Route Start Last Admin Trade Name Freq PRN Reason Stop Dose Admin Aspirin 81 mg 03/03/24 09:00 Aspirin 81 Mg PO DAILY ZULEIKA Heparin Sodium (Porcine) 5,000 unit 03/03/24 00:00 03/02/24 23:25 Heparin Sodium,Porcine 5,000 Unit/Ml 1 Ml Vial SQ 5,000 unit Q8HR ZULEIKA Administration Hydrochlorothiazide 12.5 mg 03/03/24 09:00 Hydrochlorothiazide 12.5 Mg Cap PO DAILY [facility] Sodium Chloride 1,000 mls @ 75 mls/hr 03/02/24 22:45 03/02/24 23:22 Saline 0.9% IV 75 mls/hr .[id number] ZULEIKA Administration Losartan Potassium 100 mg 03/03/24 09:00 Losartan 50 Mg Tab PO DAILY ZULEIKA Metoprolol Tartrate 50 mg 03/03/24 09:00 Metoprolol Tartrate 50 Mg Tab PO BID ZULEIKA Naloxone HCl 0.2 mg 03/02/24 22:33 Naloxone 0.4 Mg/Ml 1 Ml Vial IV Q2M PRN Opioid Reversal Ondansetron HCl 4 mg 03/02/24 22:33 Ondansetron 4 Mg/2 Ml Vial IVP Q8HR PRN Nausea And Vomiting Ticagrelor 90 mg 03/03/24 09:00 Ticagrelor 90 Mg Tab PO BID [facility] Intake and Output 03/02/24 03/03/24 03/03/24 22:59 06:59 14:59 Other: Weight 106.594 kg 03/02/24 21:47 03/02/24 21:47
[2024-03-03] MEDS ORDERED: LORazepam 1 MG TAB PO PRN ×3 (15:26)
[2024-03-03] MEDS ORDERED: LORazepam 2 MG/ML INJ IV PRN ×2 (15:26)
[2024-03-03] MEDS ORDERED: LORazepam 0.5 MG TAB PO PRN (15:26)
--- NOTE | 2024-03-03 15:30 | P.PN ---
Subjective Progress Note Date: 03/03/24 Hospital course: Patient is a 53-year-old male with a past medical history of CAD status post recent stenting 5 months ago and hypertension. Presented to the emergency department on 03/02/2024 with a chief complaint of chest pain and exertional dyspnea. On arrival to our facility, patient underwent evaluation in the emergency department. Vital signs upon arrival show blood pressure 197/105, heart rate 68, respiratory rate 18, temp 97.8 F, and SpO2 of 98% on room air. EKG was completed showing normal sinus rhythm at 67 bpm with no significant T wave or ST abnormalities showing no signs of acute ischemia upon personal review and interpretation. Chest x-ray revealing mild cardiomegaly but negative for acute cardiopulmonary process. Labs were completed and reviewed. CBC and coagulation profile normal findings. BMP unremarkable. Blood glucose 108. Liver profile showing elevated AST of 62 and ALT of 52. Troponin 0.013 and proBNP of 459. Blood alcohol level was 89. Patient admitted under our services with consultation to cardiology. Troponins were trended resulting at 0.013, 0.033, and 0.015. Physical exam: Vital signs reviewed and stable. General: Nontoxic, no distress and appears stated age. Derm: Skin warm and dry, normal coloration for ethnicity. Head: Atraumatic, normocephalic and symmetric. Eyes: EOM's intact, no lid lag, and anicteric sclera Mouth: no lip lesions, mucus membranes moist Cardiovascular: regular rate and rhythm with normal S1S2, no murmur, positive posterior tibial pulses bilaterally, and cap refill < 2 seconds. Lungs: Respirations even, regular, and unlabored on room air. Lungs CTA bilaterally, no rhonchi, no rales, no wheezing, and no accessory muscle usage. Abdominal: soft, nontender to palpation, no guarding, no appreciable organomegaly Ext: ROM intact. No gross muscle atrophy, no edema, no contractures Neuro: Speech clear, face symmetrical and CN II-XII grossly intact with no noted focal neuro deficits Psych: Alert and oriented to person, place, time, and situation. Appropriate and pleasant affect. Assessment and Plan of Care: Chest pain and exertional dyspnea, rule out acute coronary event CAD status post recent stenting Hypertension Hyperlipidemia nicotine dependence Alcohol intoxication upon arrival Nicotine dependence -Cardiology consulted, reviewed documentation in chart and recommending stress echo -Telemetry monitoring -Troponins were trended resulting at 0.013, 0.033, and 0.015. -Cardiac diet, NPO at midnight for planned stress echo. -Continue aspirin 81 mg daily, Plavix 75 mg daily, atorvastatin 80 mg nightly, losartan 100 mg daily, and metoprolol 50 mg twice daily. -Echocardiogram to be completed -Order placed for monitoring of CIWA scores and patient to be medicated with Ativan 0.5 mg every 4 hours as needed for CIWA score of 4-5, Ativan 1 mg every 4 hours for CIWA score of 6-7, Ativan 2 mg every 3 hours CIWA score of 8-9, and Ativan 2 mg every 2 hours forr CIWA score of 10 or greater. -Thiamine 100 mg daily, and Multivitamin daily, and Folate 1 mg daily -Seizure and fall precautions in place. -Urine drug screen -Continued close monitoring of electrolytes and replace as needed. -Recommend smoking cessation and cessation of all alcohol use, patient declined nicotine patch at this time. Data and imaging reviewed: Morning labs reviewed. CBC unremarkable. BMP revealing mild prerenal azotemia with BUN of 22 and glucose of 105 otherwise normal findings. Troponins were trended resulting at 0.013, 0.033, and 0.015. Vital signs reviewed. Blood pressure 130/60, heart rate 70, respiratory rate 16, and SpO2 of 98% on room air. CODE STATUS: Full code DVT prophylaxis: Heparin Anticipated discharge date: Pending clinical course Anticipated discharge place: Home Patient was seen independently by Nurse Pracitioner. This document was prepared using [employer] dictation software. Please allow for errors in stainless steel finisher, while rare they do occur. Kaiden aFrrell NP rendered care for this patient independently, reviewed the findings and plan as documented in the note above. I did not physically speak with or examine the patient on this date. Objective - Vital Signs Vital signs: Vital Signs Temp 97.8 F 03/02/24 21:56 Pulse 57 L 03/03/24 07:42 Resp 20 03/03/24 07:42 BP 144/84 03/03/24 07:42 Pulse Ox 98 03/03/24 07:42 FiO2 Intake & Output 03/02/24 03/03/24 03/03/24 18:59 06:59 18:59 Weight 106.594 kg - Labs CBC & Chem 7: 03/03/24 06:22 09/03/24 06:22 Labs: Abnormal Lab Results - Last 24 Hours (Table) 03/02/24 03/03/24 Range/Units 21:47 06:22 BUN 22 H (9-20) mg/dL Glucose 108 H 105 H (74-99) mg/dL AST 62 H (17-59) U/L ALT 52 H (4-49) U/L
[2024-03-03] MEDS: ATORVASTATIN 80 MG TAB PO SCH (20:32)
[2024-03-03] MEDS ORDERED: ATORVASTATIN 40 MG TAB PO SCH (21:00)
[2024-03-04 01:28] VITALS: RESP 16
[2024-03-04] MEDS: THIAMINE 100 MG TAB PO SCH (08:00)
[2024-03-04] MEDS: MULTIVITAMINS, THERA 1 EACH TAB PO SCH (08:00)
[2024-03-04] MEDS: FOLIC ACID 1 MG TAB PO SCH (08:00)
--- NOTE | 2024-03-04 11:44 | CA ---
Stress Echo Report Jonny Rey Age: 53 Gender: M : 1970 Exam Date: 03/04/2024 10:07 Exam Location: [facility] Ht (in): 71 Wt (lb): 235 Ordering Physician: Tere Altamirano Referring Physician: HUMBLE, Wad Blanking Press Adjuster: Bess Crum RDCS Technologist Procedure CPT: Indication: chest pressure ICD-9 Codes: Rhythm: Patient History: Chest pain, short of breath, palpitations, hypertension, history of NE with stent x 2. Cardiac Medications: Medications in past 24 hours: Contrast: Definity Stress Results Protocol: Rodríguez Total dose(mL): 2 Exercise Duration (min:sec): 8:[address] Depression (mm): Angina Score: Michelle Score: METS: 9.7 Resting HR: 53 Resting BP: 148 / 72 Peak HR: 124 Peak BP: 206 / 89 Max Predicted HR: 167 74 % Max Predicted HR Target HR: 142 Double Product: [id number] Stress Summary: BP Response: Reason for Termination: MAX EXERTION Cardiac Symptoms: TIGHTNESS,FATIGUE ECG Analysis Resting ECG: Stress ECG: Arrhythmia: Echo Analysis Resting Echo: Peak Echo Analysis: MEASUREMENTS (Male/Female) Normal Values CONCLUSIONS Normal sinus rhythm with poor R wave progression over precordial leads cannot exclude old anterior NE. Patient walked on a standard Rodríguez protocol for 8 minutes and achieved a maximal heart rate of 124 bpm. This is about 74% of predicted maximal he developed fatigue and shortness of breath therefore stress test was stopped. Exercise capacity was limited. He also took a beta-nathalia yesterday. Peak blood pressure was 206/89. No anginal symptoms are noted. No ST segment changes to indicate ischemia this is a technically inconclusive stress test because of inadequate chronotropic response Baseline echo images revealed normal wall motion and wall thickening of all segments. Echo contrast was used. At peak exercise there was good augmentation of left ventricular gout rectal 80 ventricular contractility suggesting that there is no ischemia at 74% of predicted maximal heart rate. Final impression #1 at a suboptimal heart rate of 74% there is no ischemia by EKG or echocardiographic criteria. Dr. Christy Silver MD (Electronically Signed) Final Date: 04 March 2024 11:44
--- NOTE | 2024-03-04 12:23 | P.PN ---
Subjective Progress Note Date: 03/04/24 Reason for Consult (text): CAD History of present illness: This is a 53-year-old male patient of Dr. Lindquist with past medical history of coronary artery disease with prior stenting of the mid LAD in the setting of acute STEMI, hypertension, dyslipidemia, smoking and alcohol use. We have been asked to evaluate the patient for coronary artery disease. Some upper chest pressure without pain. Symptoms started while he was in bed. Reviewed results of testing with the patient. Last EtOH was 4 PM. Patient is smoking a half a pack per day. EKG: Sinus rhythm with no acute ST-T wave changes. Chest x-ray: Mild cardiomegaly without acute process Laboratory studies: Troponin negative x 3, BNP 459, alcohol level 89. Potassium 3.7, BUN 22 and creatinine 1.03. Influenza A, influenza B, RSV, COVID-19 not detected. Home cardiac medications according to office note: Aspirin 81 mg daily, hydrochlorothiazide 12.5 mg, Lipitor 80 mg daily, losartan 100 mg daily, metoprolol tartrate 50 mg daily, Plavix 75 mg daily. Cardiac catheterization 10/17/2023 revealed severe disease of the mid LAD status post stent of the mid LAD. Echocardiogram performed 10/17/2023 revealed normal EF. 03/04 Patient is seen today in follow-up. He is scheduled for stress echocardiogram and echocardiogram. He is seen today on the observation unit. Blood pressure 149/93, heart rate 61, pulse ox 98% on room air. Stress echocardiogram reveals suboptimal heart rate of 74%, no ischemia by EKG or echocardiographic criteria. Physical examination: Gen: This is a 53-year-old male in no acute distress VS: reviewed HEENT: Head is atraumatic, normocephalic. Pupils equal, round. Sclerae is anicteric. NECK: Supple. No JVD. LUNGS: Clear to auscultation. No wheezes or rhonchi. No intercostal retractions. HEART: Regular rate and rhythm. Systolic murmur. ABDOMEN: Soft No tenderness. EXTREMITIES: No pedal edema. No calf tenderness. NEUROLOGICAL: Patient is awake, alert and oriented x3. Assessment: Chest pain, acute coronary syndrome ruled out History of coronary artery disease with previous stenting of the LAD in September 2023 in the setting of STEMI EtOH intoxication Hypertension Hyperlipidemia Tobacco use and dependence Alcohol use Plan: Continue patient's home cardiac medications Smoking cessation. Patient will be provided the [employer] quit line information at discharge. Alcohol cessation Recommend sleep study as an outpatient Patient is cleared for discharge from cardiology and may follow-up in the office with Dr. Lindquist in 1 to 2 weeks. Nurse practitioner note has been reviewed, I agree with documented findings and plan of care. Patient was seen and examined. Objective - Vital Signs Vital signs: Vital Signs Temp 97.4 F L 03/04/24 07:00 Pulse 61 03/04/24 07:00 Resp 16 03/04/24 07:00 BP 149/93 03/04/24 07:00 Pulse Ox 98 03/04/24 07:00 FiO2 Intake & Output 03/03/24 03/04/24 03/04/24 18:59 06:59 18:59 Intake Total 118 118 Balance 118 118 Weight 106.594 kg Intake: Oral 118 118 Other: Voiding Method Toilet # Voids 2 - Labs CBC & Chem 7: 03/03/24 06:22 03/03/24 06:22
[2024-03-04 14:09] VITALS: BP 145/75; PULSE 50; TEMP 98
--- NOTE | 2024-03-04 14:29 | P.DS ---
Providers Date of admission: 03/02/24 22:39 Expected date of discharge: 03/04/24 Attending physician: Adelaide Becker MD Consults: 03/02/24 22:33 Consult Physician Routine Consulting Provider: [facility] Consult Reason/Comments: chest pain, hx of CAD Do you want consulting provider notified?: Yes Primary care physician: Stated None Hospital Course: Discharge Diagnosis: Chest pain and exertional dyspnea, acute coronary event ruled out. CAD status post recent stenting Hypertension Hyperlipidemia nicotine dependence Alcohol intoxication upon arrival Nicotine dependence Hospital Course: Patient is a 53-year-old male with a past medical history of CAD status post recent stenting 5 months ago and hypertension. Presented to the emergency department on 03/02/2024 with a chief complaint of chest pain and exertional dyspnea. On arrival to our facility, patient underwent evaluation in the emergency department. Vital signs upon arrival show blood pressure 197/105, heart rate 68, respiratory rate 18, temp 97.8 F, and SpO2 of 98% on room air. EKG was completed showing normal sinus rhythm at 67 bpm with no significant T wave or ST abnormalities showing no signs of acute ischemia upon personal review and interpretation. Chest x-ray revealing mild cardiomegaly but negative for acute cardiopulmonary process. Labs were completed and reviewed. CBC and coagulation profile normal findings. BMP unremarkable. Blood glucose 108. Liver profile showing elevated AST of 62 and ALT of 52. Troponin 0.013 and proBNP of 459. Blood alcohol level was 89. Patient admitted under our services with consultation to cardiology. Troponins were trended resulting at 0.013, 0.0 33, and 0.015. Echocardiogram completed and currently pending results. Patient underwent stress echo which was negative for acute ischemic changes. Cardiology clearing patient from cardiac perspective for discharge, patient to follow-up in office with Dr. Lindquist for echocardiogram results. Patient currently free from chest pain or discomfort, denies any other complaints at this time. Patient is medically stable for discharge and to follow-up outpatient with PCP in 2 days and with play leader in 2 weeks. Physical exam: Vital signs reviewed and stable. General: Nontoxic, no distress and appears stated age. Derm: Skin warm and dry, normal coloration for ethnicity. Head: Atraumatic, normocephalic and symmetric. Eyes: EOM's intact, no lid lag, and anicteric sclera Mouth: no lip lesions, mucus membranes moist Cardiovascular: regular rate and rhythm with normal S1S2, no murmur, positive posterior tibial pulses bilaterally, and cap refill < 2 seconds. Lungs: Respirations even, regular, and unlabored on room air. Lungs CTA bilaterally, no rhonchi, no rales, no wheezing, and no accessory muscle usage. Abdominal: soft, nontender to palpation, no guarding, no appreciable organomegaly Ext: ROM intact. No gross muscle atrophy, no edema, no contractures Neuro: Speech clear, face symmetrical and CN II-XII grossly intact with no noted focal neuro deficits Psych: Alert and oriented to person, place, time, and situation. Appropriate and pleasant affect. A total of 35 minutes of time were spent preparing this complex discharge summary. Pt was discharged on 03/04/2024 at 2:27 PM. Patient was seen independently by Nurse Practitioner. This document was prepared using [employer] dictation software. Please allow for errors in invasive manager while rare they do occur. .Kaiden Farrell NP rendered care for this patient independently, reviewed the findings and plan as documented in the note above. I did not physically speak with or examine the patient on this date. Patient Condition at Discharge: Stable Plan - Discharge Summary Discharge Rx Participant: No New Discharge Prescriptions: Continue Losartan Potassium 100 mg PO DAILY hydroCHLOROthiazide 12.5 mg PO DAILY Venlafaxine HCl [Effexor] 100 mg PO DAILY Aspirin 81 mg PO DAILY 60 Days #60 tab Atorvastatin [Lipitor] 80 mg PO HS 90 Days #90 tab Clopidogrel [Plavix] 75 mg PO DAILY Metoprolol Tartrate [Lopressor] 50 mg PO BID 60 Days #120 tab Discharge Medication List Losartan Potassium 100 mg PO DAILY 10/02/15 [History] Venlafaxine HCl [Effexor] 100 mg PO DAILY 06/21/23 [History] hydroCHLOROthiazide 12.5 mg PO DAILY 06/21/23 [History] Aspirin 81 mg PO DAILY 60 Days #60 tab 10/19/23 [Rx] Atorvastatin [Lipitor] 80 mg PO HS 90 Days #90 tab 10/19/23 [Rx] Clopidogrel [Plavix] 75 mg PO DAILY 03/03/24 [History] Metoprolol Tartrate [Lopressor] 50 mg PO BID 60 Days #120 tab 03/04/24 [Rx] Follow up Appointment(s)/Referral(s): Javier Lindquist MD [STAFF PHYSICIAN] - 03/19/24 9:30 am Shannon Ortez MD [REFERRING] - 03/06/24 11:00 am (PLEASE CALL OFFICE TODAY AND SCHEDULE APPOINTMENT FOR POST HOSPITALIZATION FOLLOW UP AND TO ESTABLISH CARE WITH PCP) Patient Instructions/Handouts: Chest Pain (DC), How to Stop Smoking (DC) Activity/Diet/Wound Care/Special Instructions: Activity: As tolerated. Take breaks as needed. Diet: Heart healthy and carb consistent diet. Avoid salts, or foods with hidden salts such as canned or boxed foods and frozen dinners. Extra salt makes your heart work harder and traps the fluid in your body for longer. Special Instructions: Take all of your medications as directed and remember to keep all of your doctor's appointments and follow-up as needed. Cardiogram results/report is not available at time of discharge, these results will be given to you at your follow-up appointment with Dr. Lindquist at your play leader office. Recommend cessation of alcohol use and nicotine use. Thank you for allowing us to participate in your care, it was truly a pleasure having you for our patient!!! Discharge/Stand Alone Forms: AA Meetings [place] Discharge Disposition: HOME SELF-CARE
--- NOTE | 2024-03-05 11:04 | CA ---
Transthoracic Echo Report Name: Jonny Rey Age: 53 Gender: M : 1970 Exam Date: 03/04/2024 10:34 Exam Location: [place] [facility] Ht (in): 71 Wt (lb): 235 Ordering Physician: Adelaide Becker MD Attending/Referring Phys: Chuck Tender Bess Crum RDCS Procedure CPT: Indications: exertional dyspnea Cardiac Hx: Technical Quality: Technically difficult study Contrast 1: Definity Total Dose (mL): 2 Contrast 2: Total Dose (mL): MEASUREMENTS (Male / Female) Normal Values 2D ECHO LV Diastolic Diameter PLAX 4.1 cm 4.2 - 5.9 / 3.9 - 5.3 cm LV Systolic Diameter PLAX 2.6 cm IVS Diastolic Thickness 1.4 cm 0.6 - 1.0 / 0.6 - 0.9 cm LVPW Diastolic Thickness 1.3 cm 0.6 - 1.0 / 0.6 - 0.9 cm LV Relative Wall Thickness 0.7 LVOT Diameter 2.5 cm LV Diastolic Volume MOD BP 153.0 cm??? 67 - 155 / 56 - 104 cm??? LV Systolic Volume MOD BP 64.6 cm??? 22 - 58 / 19 - 49 cm??? LV Ejection Fraction MOD BP 57.8 % >= 55 % LV Cardiac Index MOD BP 2376.3 cm???/min???m??? LV Diastolic Volume MOD 4C 153.1 cm??? LV Systolic Volume MOD 4C 65.3 cm??? LV Ejection Fraction MOD 4C 57.3 % LV Cardiac Index MOD 4C 2359.6 cm???/min???m??? LV Diastolic Length 4C 9.6 cm LV Systolic Length 4C 7.9 cm LV Diastolic Volume MOD 2C 147.8 cm??? LV Systolic Volume MOD 2C 63.0 cm??? LV Ejection Fraction MOD 2C 57.4 % LV Cardiac Index MOD 2C 2280.6 cm???/min???m??? LV Diastolic Length 2C 9.2 cm LV Systolic Length 2C 8.1 cm LA Volume 73.1 cm??? 18 - 58 / 22 - 52 cm??? LA Volume Index 31.2 cm???/m??? 16 - 28 cm???/m??? Ascending Aorta Diameter 3.9 cm DOPPLER AV Peak Velocity 129.3 cm/s AV Peak Gradient 6.7 mmHg AV Mean Velocity 93.6 cm/s AV Mean Gradient 3.8 mmHg AV Velocity Time Integral 25.7 cm LVOT Peak Velocity 101.2 cm/s LVOT Peak Gradient 4.1 mmHg LVOT Velocity Time Integral 21.2 cm LVOT Stroke Volume 106.7 cm??? LVOT Stroke Volume Index 47.3 ml/m??? LVOT Cardiac Index 2869.8 cm???/min???m??? AV Area Cont Eq vti 4.2 cm??? AV Area Cont Eq pk 3.9 cm??? MV Area PHT 3.1 cm??? Mitral E Point Velocity 49.6 cm/s Mitral A Point Velocity 64.1 cm/s Mitral E to A Ratio 0.8 MV Deceleration Time 242.5 ms PV Peak Velocity 83.5 cm/s PV Peak Gradient 2.8 mmHg FINDINGS Left Ventricle Left ventricular ejection fraction is estimated at 55-60 %. Mildly increased septal wall thickness. Mildly increased left ventricular systolic volume. No obvious regional wall motion abnormalities. Right Ventricle Normal right ventricular size and function. Unable to estimate the right ventricular systolic pressure. Right Atrium Normal right atrial size. Left Atrium Mildly increased left atrial volume. Mildly increased left atrial area. Mitral Valve Structurally normal mitral valve. No evidence for mitral valve prolapse. No mitral stenosis. Aortic Valve Trileaflet aortic valve. No aortic valve stenosis or regurgitation. Tricuspid Valve Structurally normal tricuspid valve. No tricuspid stenosis. No tricuspid regurgitation. Pulmonic Valve Pulmonic valve not well visualized. No pulmonic stenosis. No pulmonic regurgitation. Pericardium No pericardial effusion. Aorta Aortic root and proximal ascending aorta not well visualized. CONCLUSIONS Normal LV size and systolic function. Echo contrast was used. There is minimal mitral and tricuspid regurgitation. No pericardial effusion. Previewed by: Dr. Christy Silver MD (Electronically Signed) Final Date: 05 March 2024 11:03
== END 2024-03-04 15:17 | disposition home or self-care (01) ==
LOC: EC 21:19 → 6NMEDSUR 22:39
PROVIDERS: ADMIT Internal Medicine; ATTEND Internal Medicine
DX: R07.89 Other chest pain (principal); I25.10 Atherosclerotic heart disease of native coronary artery without angina pectoris; E78.5 Hyperlipidemia, unspecified; I11.9 Hypertensive heart disease without heart failure; R94.31 Abnormal electrocardiogram [ECG] [EKG]; R06.09 Other forms of dyspnea; R05.9 Cough, unspecified; F10.129 Alcohol abuse with intoxication, unspecified; Y90.4 Blood alcohol level of 80-99 mg/100 ml; R74.01 Elevation of levels of liver transaminase levels; I25.2 Old myocardial infarction; F17.210 Nicotine dependence, cigarettes, uncomplicated; Z79.02 Long term (current) use of antithrombotics/antiplatelets; Z79.82 Long term (current) use of aspirin; Z79.899 Other long term (current) drug therapy; Z11.59 Encounter for screening for other viral diseases; Z11.52 Encounter for screening for COVID-19; Z95.5 Presence of coronary angioplasty implant and graft
CPT/HCPCS: 36415; 71046; 80053; 80320; 83735; 83880; 84484; 85025; 85610; 85730; 87636; 93005; 93306; 93351; 96361; 96365; 96372; 99285